=== PATIENT | male | born 1940 | race Caucasian/White ===

== ENCOUNTER → 2016-12-05 | Day surgery (SDC) | payer BC ==
[2016-11-28 14:33] VITALS: Ht 172.7 cm; Wt 77.3 kg
[~2016-12-05] VITALS: Ht 172.7 cm; Wt 77.3 kg
[~2016-12-05] MED LIST: 500ML BSS 0.3ML EPI 1:1000PF IRRIG ONE; ACETAMINOPHEN 325 MG TAB PO PRN; AMVISC PLUS 0.8ML SYRINGE INT OCU ONE; ASPEC81 PO; ATROPINE SULFATE 0.1 MG/ML 5ML SYR IV PRN; BSS FLUSH ONE; COEN75CA PO; CRS/10 PO; ENDOCOAT 0.85ML SYRINGE INT OCU ONE; EpHEDrine SULFATE INJ 50 MG/ML AMP IV PRN; EpINEphrine INJ 1MG/ML AMP 1 MG/ML AMP ONE; GLUC250C PO; HYDR12.55 PO; LACTATED RINGER'S 1000ML 500 ML IV SCH; LIDOCAINE 4% OP SOLN DROP CHARGE ONE; LIDOCAINE 4% OP SOLN DROP CHARGE OPL SCH; LIDOCAINE HCL 1% MPF 2 ML VIAL ONE; LISI20TA3 PO; MIDAZOLAM HCL 1 MG/ML 2ML VIAL ONE; MIX: 4ML BSS 1ML EPI 1:1000 PF TOP ONE; MOXIFLOXACIN OPH SOLN PER DROP CHARGE ONE; MULTTAB58 PO; PHENYLEPHRINE HCL 10% OP SOLN 5 ML BTL OPL ONE; POVIDONE-IODINE OP SOLN 30 ML BTL ONE; PRED1SUS3 OPL; PROPARACAINE 0.5% OP SOLN PER DROP CHARGE OPL SCH; PROPARACAINE HCL 0.5% OP SOLN 15 ML BTL OPL ONE; TOBRAMYCIN/DEXAMETHASONE OPH OINT PER APPLN CHARGE ONE
[2016-12-05] MEDS: PHENYLEPHRINE HCL 2.5% OP SOLN PER DROP CHARGE OPL SCH ×3 (10:29→10:39)
[2016-12-05] MEDS: TROPICAMIDE 1% OP SOLN PER DROP CHARGE OPL SCH ×3 (10:30→10:40)
[2016-12-05] MEDS: CYCLOPENTOLATE HCL 1% OP SOLN PER DROP CHARGE OPL SCH ×3 (10:31→10:41)
[2016-12-05] MEDS: MOXIFLOXACIN OPH SOLN PER DROP CHARGE OPL SCH ×3 (10:32→10:42)
--- NOTE | 2016-12-05 10:45 | History & Physical Bridge - SC ---
H&P Re-Evaluation Bridge Note: I have examined the patient, reviewed the History & Physical and in the interval since the performance of the History & Physical I have noted the following changes of clinical significance: No changes noted
[2016-12-05 12:11] VITALS: TEMP 36.5
--- NOTE | 2016-12-05 12:11 | [facility] Post Operative Brief Note ---
Immediate Operative Summary Operative Date Dec 05, 2016. Pre-Operative Diagnosis cataract left eye Post-Operative Diagnosis same Procedure(s) Performed Left Cataract Phacoemulsification With Intraocular Lens Implant; Multifocal Lens Surgeon dr sybil valencia Osteopathic Medicine Teacher Surgeon(s) none Estimated Blood Loss 0 Findings left cataract Specimens 0 Complication(s) None Disposition
--- NOTE | 2016-12-05 12:14 | [facility] Operative Report ---
Operative Report DATE OF OPERATION: 12/05/16 PREOPERATIVE DIAGNOSIS: Senile nuclear cataract, left eye POSTOPERATIVE DIAGNOSIS: Senile nuclear cataract, left eye PROCEDURE PERFORMED: Femtosecond-assisted phacoemulsification with extended depth of focus intraocular lens implantation, left eye SURGEON: Dr. Jimbo Gibbons ANESTHESIA: Topical with 1% intracameral lidocaine and monitored anesthesia care COMPLICATIONS: None DESCRIPTION OF PROCEDURE: After positively identifying the patient both verbally and by wristband in the preoperative area, the left eye was marked as the operative eye. Using a sterile marker, the 3:00, 6:00 and 9:00 position on the limbus were marked after placing a drop of proparacaine. The patient was first brought to the laser room where the femtosecond laser was used to create the lens fragmentation , capsulotomy, and main incision. The patient was then brought back to the operating room by the anesthesia and nursing staff where they were given a drop of tetracaine and betadine into the operative eye. They were then sterilely prepped and draped in the standard fashion typical for ophthalmic surgery. Steri-strips were placed along the upper eyelids to keep the lashes back, and a lid speculum was placed into the operative eye. At this point, a documented time out was performed with members of the ophthalmology, nursing, and anesthesia staffs all agreeing upon the correct patient, correct location for surgery, correct procedure, and correct type and power of intraocular lens to be implanted. The microscope was then swung into position. Then, a paracentesis wound was made using a sideport blade. Then, in sequence, 1% preservative-free lidocaine followed by Endocoat viscoelastic was injected into the anterior chamber. Next , the main incision was opened with a Hugh spatula, and Utrata forceps were used to remove the capsulotomy. Hydrodissection was then performed with BSS on a flat-tip cannula. Next, the phacoemulsification handpiece was introduced into the eye and used to remove the nucleus in a oupofy-zvd-flidkwg fashion. This was done without complication and then the irrigation-aspiration handpiece was introduced into the eye and used to remove all remaining cortical and epinuclear material. Amvisc was then injected into the anterior chamber as well as into the capsular bag and using the lens injector system, a ZXR00 14.5 D lens, serial number [id number] and expiration date 10/2021 was injected into the capsular bag and rotated into the correct position. Next, the irrigation- aspiration handpiece was used to remove all remaining Amvisc. BSS was used to hydrate the main wound, and then BSS was injected into the paracentesis site to reach physiologic pressure and then the main wound was checked and found to be watertight. The patient was given drops of Vigamox and tobradex ointment into the operative eye, and then the surrounding area was cleaned and dried. A clear plastic shield was placed over the eye and the patient was then sat up and taken from the operating room by the anesthesia staff having tolerated the procedure well and suffering no complications. DISPOSITION: The patient was returned to the recovery room in stable condition. I attest to the content of the Intraoperative Record and any orders documented therein. Any exceptions are noted below.
--- NOTE | 2016-12-05 12:15 | Discharge Instructions-SurgCtr ---
Discharge Instructions Visit Reason for Visit: Cataract Left Eye Discharge Discharge Diagnosis / Problem: left cataract Discharge Goals Goal(s): Decrease discomfort, Improve function Activity Recommendations Activity Limitations: as noted below Anesthesia . Post Anesthesia Instructions: If you have had General Anesthesia or IV Sedation: * Do not drive today. * Resume driving when surgeon permits. * Do not make important decisions or sign legal documents today. * Call surgeon for: 1. Temperature elevations greater than 101 degrees F. 2. Uncontrollable pain. 3. Excessive bleeding. 4. Persistent nausea and vomiting. 5. Medication intolerance (nausea, vomiting or rash). * For nausea and vomiting use only clear liquids such as: tea, soda, bouillon until nausea subsides, then gradually increase diet as tolerated. * If you have any concerns or questions, call your surgeon's office. If physician is unavailable and it is an emergency, call 911 or go to the nearest emergency room. . Instructions / Follow-Up Instructions / Follow-Up ACTIVITY RECOMMENDATIONS: * Light activities. * You may walk outside, read, watch television. * You may notice redness on the white part of the eye and some blurry vision - this is normal. MEDICATIONS: Resume previous medications unless instructed otherwise by your surgeon. Start all eye drops at 2 pm today: * Eye drops (today): Prednisone - one drop in operative eye every 2 hours while awake Ofloxacin - one drop in operative eye every 2 hours while awake Ilevro - one drop in operative eye daily SPECIAL CARE INSTRUCTIONS: * Tape plastic shield over eye to sleep at night. Call your doctor at with any concerns or problems. FOLLOW UP VISIT: Follow-up with Dr Gibbons at [facility] as scheduled. Diet Recommendations Home Diet: no limitations Procedures Procedures Performed: Left Cataract Phacoemulsification With Intraocular Lens Implant; Multifocal Lens Pending Studies Studies pending at discharge: no Medical Emergencies . Who to Call and When: Medical Emergencies: If at any time you feel your situation is an emergency, please call 911 immediately. . Non-Emergent Contact Non-Emergency issues call your: Surgeon . . "Provider Documentation" section prepared by Jimbo Gibbons.
[2016-12-05 12:28] VITALS: BP 141/79; PULSE 60; O2SAT 97
--- NOTE | 2016-12-05 12:28 | Anesthesia Progress Nt - [facility] ---
Anesthesia Post Op Note Date & Time Dec 05, 2016 at 12:28 Vital Signs Pain Intensity: 0 Vital Signs Past 12 Hours Date Time Temp Pulse Resp B/P Pulse Ox O2 Delivery O2 Flow Rate FiO2 12/05/16 12:11 36.5 54 16 125/79 97 Room Air 12/05/16 11:42 59 16 129/79 95 12/05/16 11:30 57 16 106/78 94 12/05/16 10:24 36.4 73 18 148/80 98 Room Air Notes Mental Status: alert / awake / arousable, participated in evaluation Pt Amnestic to Procedure: Yes Nausea / Vomiting: adequately controlled Pain: adequately controlled Airway Patency, RR, SpO2: stable & adequate BP & HR: stable & adequate Hydration State: stable & adequate Anesthetic Complications: no major complications apparent
== END | disposition home or self-care (01) ==
LOC: X.SURG 10:15
PROVIDERS: ATTEND Ophthalmology
DX: H25.12 Age-related nuclear cataract, left eye (principal); I10 Essential (primary) hypertension; Z87.891 Personal history of nicotine dependence; E78.00 Pure hypercholesterolemia, unspecified; K58.9 Irritable bowel syndrome, unspecified

== ENCOUNTER → 2016-12-19 | Day surgery (SDC) | payer BC ==
[2016-12-12 10:34] VITALS: Ht 172.7 cm; Wt 77.3 kg
[~2016-12-19] VITALS: Ht 172.7 cm; Wt 77.3 kg
[~2016-12-19] MED LIST changes: -LIDOCAINE 4% OP SOLN DROP CHARGE OPL SCH; +LIDOCAINE 4% OP SOLN DROP CHARGE OPR SCH; -PHENYLEPHRINE HCL 10% OP SOLN 5 ML BTL OPL ONE; +PHENYLEPHRINE HCL 10% OP SOLN 5 ML BTL OPR ONE; -PRED1SUS3 OPL; -PROPARACAINE 0.5% OP SOLN PER DROP CHARGE OPL SCH; +PROPARACAINE 0.5% OP SOLN PER DROP CHARGE OPR SCH; -PROPARACAINE HCL 0.5% OP SOLN 15 ML BTL OPL ONE; +PROPARACAINE HCL 0.5% OP SOLN 15 ML BTL OPR ONE
[2016-12-19] MEDS: PHENYLEPHRINE HCL 2.5% OP SOLN PER DROP CHARGE OPR SCH ×3 (10:35→10:45)
[2016-12-19] MEDS: TROPICAMIDE 1% OP SOLN PER DROP CHARGE OPR SCH ×3 (10:36→10:46)
[2016-12-19] MEDS: CYCLOPENTOLATE HCL 1% OP SOLN PER DROP CHARGE OPR SCH ×3 (10:37→10:47)
[2016-12-19] MEDS: MOXIFLOXACIN OPH SOLN PER DROP CHARGE OPR SCH ×3 (10:38→10:48)
--- NOTE | 2016-12-19 12:19 | [facility] Post Operative Brief Note ---
Immediate Operative Summary Operative Date Dec 19, 2016. Pre-Operative Diagnosis Right Eye Cataract Post-Operative Diagnosis Same Procedure(s) Performed Right Cataract Phacoemulsification With Intraocular Lens Implant; Symfony Lens Surgeon Dr Gibbons Fan Installer Surgeon(s) None Estimated Blood Loss 0ml Findings right cataract Specimens None Complication(s) None Disposition
[2016-12-19 12:22] VITALS: TEMP 36
--- NOTE | 2016-12-19 12:22 | [facility] Operative Report ---
Operative Report Date of Service Dec 19, 2016. Operative Report DATE OF OPERATION: 12/19/16 PREOPERATIVE DIAGNOSIS: Senile nuclear cataract and astigmatism, right eye POSTOPERATIVE DIAGNOSIS: Senile nuclear cataract and astigmatism, right eye PROCEDURE PERFORMED: Femtosecond assisted phacoemulsification with intraocular lens implantation, right eye SURGEON: Dr. Jimbo Gibbons ANESTHESIA: Topical with 1% intracameral lidocaine and monitored anesthesia care COMPLICATIONS: None DESCRIPTION OF PROCEDURE: After positively identifying the patient both verbally and by wristband in the preoperative area, the right eye was marked as the operative eye. Using a sterile marker, the 3:00, 6:00, and 9:00 position on the limbus were marked after placing a drop of lidocaine. The patient was then brought back to the operating room by the anesthesia and nursing staff where they were given a drop of tetracaine and betadine into the operative eye. They were then sterilely prepped and draped in the standard fashion typical for ophthalmic surgery. Steri-strips were placed along the upper eyelids to keep the lashes back, and a lid speculum was placed into the operative eye. At this point, a documented time out was performed with members of the ophthalmology, nursing, and anesthesia staffs all agreeing upon the correct patient, correct location for surgery, correct procedure, and correct type and power of intraocular lens to be implanted. The microscope was then swung into position. Then, a paracentesis wound was made using a sideport blade. Then, in sequence, 1% preservative-free lidocaine followed by Endocoat viscoelastic was injected into the anterior chamber. Next , the main incision was opened with a Hugh spatula. Utrata forceps were used to remove the capsulotomy. Hydrodissection was then performed with BSS on a flat-tip cannula. Next, the phacoemulsification handpiece was introduced into the eye and used to remove the nucleus in a durjlm-vnx-vzxwupa fashion. This was done without complication and then the irrigation-aspiration handpiece was introduced into the eye and used to remove all remaining cortical and epinuclear material. Amvisc was then injected into the anterior chamber as well as into the capsular bag and using the lens injector system, a ZXR00 14.5 D lens, serial number [id number], and expiration date 10/2021 was injected into the capsular bag and rotated into the correct position to correctly line up with the toric marking. Next, the irrigation-aspiration handpiece was used to remove all remaining Amvisc. BSS was used to hydrate the main wound, and then BSS was injected into the paracentesis site to reach physiologic pressure and then the main wound was checked and found to be watertight. The patient was given drops of Vigamox and tobradex ointment into the operative eye, and then the surrounding area was cleaned and dried. A clear plastic shield was placed over the eye and the patient was then sat up and taken from the operating room by the anesthesia staff having tolerated the procedure well and suffering no complications. DISPOSITION: The patient was returned to the recovery room in stable condition. I attest to the content of the Intraoperative Record and any orders documented therein. Any exceptions are noted below.
--- NOTE | 2016-12-19 12:23 | Discharge Instructions-SurgCtr ---
Discharge Instructions Visit Reason for Visit: Cataract Right Eye Discharge Discharge Diagnosis / Problem: right cataract Discharge Goals Goal(s): Decrease discomfort, Improve function Activity Recommendations Activity Limitations: as noted below Anesthesia . Post Anesthesia Instructions: If you have had General Anesthesia or IV Sedation: * Do not drive today. * Resume driving when surgeon permits. * Do not make important decisions or sign legal documents today. * Call surgeon for: 1. Temperature elevations greater than 101 degrees F. 2. Uncontrollable pain. 3. Excessive bleeding. 4. Persistent nausea and vomiting. 5. Medication intolerance (nausea, vomiting or rash). * For nausea and vomiting use only clear liquids such as: tea, soda, bouillon until nausea subsides, then gradually increase diet as tolerated. * If you have any concerns or questions, call your surgeon's office. If physician is unavailable and it is an emergency, call 911 or go to the nearest emergency room. . Instructions / Follow-Up Instructions / Follow-Up ACTIVITY RECOMMENDATIONS: * Light activities. * You may walk outside, read, watch television. * You may notice redness on the white part of the eye and some blurry vision - this is normal. MEDICATIONS: Resume previous medications unless instructed otherwise by your surgeon. Start all eye drops at 2:30 pm today: * Eye drops (today): Prednisone - one drop in operative eye every 2 hours while awake Ofloxacin - one drop in operative eye every 2 hours while awake Ilevro - one drop in operative eye daily SPECIAL CARE INSTRUCTIONS: * Tape plastic shield over eye to sleep at night. Call your doctor at with any concerns or problems. FOLLOW UP VISIT: Follow-up with Dr Gibbons at [facility] as scheduled. Diet Recommendations Home Diet: no limitations Procedures Procedures Performed: Right Cataract Phacoemulsification With Intraocular Lens Implant; Symfony Lens Pending Studies Studies pending at discharge: no Medical Emergencies . Who to Call and When: Medical Emergencies: If at any time you feel your situation is an emergency, please call 911 immediately. . Non-Emergent Contact Non-Emergency issues call your: Surgeon . . "Provider Documentation" section prepared by Jimbo Gibbons.
[2016-12-19 12:45] VITALS: BP 140/92; PULSE 64; O2SAT 96
--- NOTE | 2016-12-19 12:45 | Anesthesia Progress Nt - [facility] ---
Anesthesia Post Op Note Date & Time Dec 19, 2016 at 12:45 Vital Signs Pain Intensity: 0 Vital Signs Past 12 Hours Date Time Temp Pulse Resp B/P Pulse Ox O2 Delivery O2 Flow Rate FiO2 12/19/16 12:22 36.0 56 16 127/82 99 Room Air 12/19/16 11:50 58 16 142/87 92 12/19/16 11:40 58 16 134/75 94 12/19/16 10:27 36.4 67 18 171/82 99 Room Air Notes Mental Status: alert / awake / arousable, participated in evaluation Pt Amnestic to Procedure: Yes Nausea / Vomiting: adequately controlled Pain: adequately controlled Airway Patency, RR, SpO2: stable & adequate BP & HR: stable & adequate Hydration State: stable & adequate Anesthetic Complications: no major complications apparent
== END | disposition home or self-care (01) ==
LOC: X.SURG 10:15
PROVIDERS: ATTEND Ophthalmology
DX: H25.10 Age-related nuclear cataract, unspecified eye (principal); H52.201 Unspecified astigmatism, right eye; I10 Essential (primary) hypertension; E78.5 Hyperlipidemia, unspecified; M19.90 Unspecified osteoarthritis, unspecified site; K58.9 Irritable bowel syndrome, unspecified

== ENCOUNTER → 2017-03-01 | Outpatient (CLI) | payer BC ==
[~2017-03-01] MED LIST changes: -500ML BSS 0.3ML EPI 1:1000PF IRRIG ONE; -ACETAMINOPHEN 325 MG TAB PO PRN; -AMVISC PLUS 0.8ML SYRINGE INT OCU ONE; -ATROPINE SULFATE 0.1 MG/ML 5ML SYR IV PRN; -BSS FLUSH ONE; -ENDOCOAT 0.85ML SYRINGE INT OCU ONE; -EpHEDrine SULFATE INJ 50 MG/ML AMP IV PRN; -EpINEphrine INJ 1MG/ML AMP 1 MG/ML AMP ONE; -LACTATED RINGER'S 1000ML 500 ML IV SCH; -LIDOCAINE 4% OP SOLN DROP CHARGE ONE; -LIDOCAINE 4% OP SOLN DROP CHARGE OPR SCH; -LIDOCAINE HCL 1% MPF 2 ML VIAL ONE; -MIDAZOLAM HCL 1 MG/ML 2ML VIAL ONE; -MIX: 4ML BSS 1ML EPI 1:1000 PF TOP ONE; -MOXIFLOXACIN OPH SOLN PER DROP CHARGE ONE; -PHENYLEPHRINE HCL 10% OP SOLN 5 ML BTL OPR ONE; -POVIDONE-IODINE OP SOLN 30 ML BTL ONE; -PROPARACAINE 0.5% OP SOLN PER DROP CHARGE OPR SCH; -PROPARACAINE HCL 0.5% OP SOLN 15 ML BTL OPR ONE; -TOBRAMYCIN/DEXAMETHASONE OPH OINT PER APPLN CHARGE ONE
--- NOTE | 2017-03-01 15:05 | DIAGNOSTIC IMAGING REPORT ---
CT HEAD WITHOUT CONTRAST (CT) CLINICAL HISTORY: HEAD TRAUMA 4]. HEAD PAIN COMPARISON STUDY: 10/11/2013 TECHNIQUE: Axial CT of the brain is performed from the vertex to the skull base. IV contrast was not administered for this examination. CT DOSE: 580.48 mGy.cm FINDINGS: No intra or extra-axial mass lesions are visualized. There is no CT evidence of acute cortical infarction. There is no evidence of midline shift. There is no acute hemorrhage. No calvarial fractures are visualized. There are patchy white matter hypodensities likely on a small vessel basis. There is no evidence of pathologic ventricular dilatation. There is no evidence of acute sinusitis IMPRESSION: No acute intracranial findings Electronically signed by: Nima Dodd M.D. 03/01/2017 3:04 PM Dictated Date/Time: 03/01/2017 3:03 PM
== END | disposition home or self-care (01) ==
LOC: C.CTS 14:52
PROVIDERS: ATTEND Student in an Organized Health Care Education/Training Program
DX: S09.90XA Unspecified injury of head, initial encounter (principal); X58.XXXA Exposure to other specified factors, initial encounter

== ENCOUNTER 2019-11-28 13:29 | Observation (INO) ==
[2019-11-28] MEDS ORDERED: SODIUM CHLORIDE 0.9% 500 ML IV ONE (13:50)
[2019-11-28 14:30] LABS: Basophils # (auto) 0.01 K/uL (0-0.2); Basophils % (auto) 0.2 %; Eosinophils # (auto) 0.06 K/uL (0-0.5); Eosinophils % (auto) 1.4 %; Hematocrit (blood only) 38.1 % (42-52); Lymphocytes # (auto) 0.79 K/uL (1.2-3.4); Mean Corpuscular Hemoglobin 32.3 pg (25-34); Mean Corpuscular Hgb Conc 34.1 g/dL (32-36); Mean Corpuscular Volume 94.8 fL (80-100); Mean Platelet Volume 9.5 fL (7.4-10.4); Monocytes # (auto) 0.41 K/uL (0.11-0.59); Monocytes % (auto) 9.9 %; Neutrophils # (auto) 2.89 K/uL (1.4-6.5); Neutrophils % (auto) 69.5 %; Platelet Count 226 K/uL (130-400); RDW Coefficient of Variation 11.9 % (11.5-14.5); RDW Standard Deviation 41.2 fL (36.4-46.3); Red Blood Count 4.02 M/uL (4.7-6.1); White Blood Count 4.16 K/uL (4.8-10.8)
--- NOTE | 2019-11-28 14:39 | XRay Report ---
XR chest 1V portable CLINICAL HISTORY: 79 years-old Male presenting with Chest Pain. TECHNIQUE: Portable upright AP view of the chest was obtained. COMPARISON: 10/11/2013. FINDINGS: Cardiac silhouette borderline enlarged. No focal opacity. No large effusion or pneumothorax. Degenera tive changes of the thoracic spine. Mild degenerative changes of the glenohumeral joints. Upper abdom en normal. IMPRESSION: 1. Borderline cardiomegaly. No other convincing evidence of acute cardiopulmonary disease. ACT 112: Negative or not required by law. Electronically signed by: Dain Titus M.D. 11/28/2019 2:37 PM
[2019-11-28 14:41] LABS: INR 1.1 (0.9-1.1); Partial Thromboplastin Ratio 0.9; Partial Thromboplastin Time 25.6 Seconds (21.0-31.0); Prothrombin Time 11.4 Seconds (9.0-12.0)
[2019-11-28 14:47] LABS: Alanine Aminotransferase 29 U/L (12-78); Albumin Level 3.5 gm/dl (3.4-5.0); Aspartate Aminotransferase 24 U/L (15-37); Blood Urea Nitrogen 25 mg/dl (7-18); Calcium 8.6 mg/dl (8.5-10.1); Carbon Dioxide 31 mmol/L (21-32); Chloride 103 mmol/L (98-107); Creatinine Clr Calc Pharmacy 50.6 ml/min; Est GFR (African American) 67.4; Est GFR (Non-African American) 58.2; Glucose 110 mg/dl (70-99); Lipase 130 U/L (73-393); Sodium 138 mmol/L (136-145)
[2019-11-28 14:58] LABS: Albumin Globulin Ratio 1.1 (0.9-2); Alkaline Phosphatase 57 U/L (45-117); Bilirubin,Total 0.5 mg/dl (0.2-1); Globulin 3.1 gm/dl (2.5-4.0); Phosphorus 2.6 mg/dl (2.5-4.9); Total Protein 6.6 gm/dl (6.4-8.2); Troponin I < 0.015 ng/ml (0-0.045)
--- NOTE | 2019-11-28 16:01 | Electrocardiogram Report ---
Test Reason : Blood Pressure : / mmHG Vent. Rate : 062 BPM Atrial Rate : 062 BPM P-R Int : 218 ms QRS Dur : 086 ms QT Int : 424 ms P-R-T Axes : 058 009 002 degrees QTc Int : 430 ms Poor data quality, interpretation may be adversely affected Sinus rhythm with 1st degree A-V block Borderline ECG When compared with ECG of 09-DEC-2013 23:43, NH interval has increased Confirmed by Geovanni Narvaez ([id number]) on 11/28/2019 4:00:44 PM Referred By: REFERRED SELF Confirmed By:Geovanni Narvaez
--- NOTE | 2019-11-28 16:15 | History & Physical Report ---
Date of Service November 28, 2019 Assessment & Plan (1) Hypertensive urgency: Left sided numbness and chest pain associated with hypertensive urgency. No end organ damage noted at present on imaging or labs. 3 hours of symptoms before relief from nitroglycerin. When seen at 4:30pm he was symptom free. I suspect his hypertension caused his symptoms rather than the other way round since treatment of the hypertension relieved his symptoms. Noted problem list of hypertensive urgency and uncontrolled hypertension in the past - patient reports this was prior to being on any anti-hypertensives and is a lot more stable now. Monitor on telemetry overnight - consider 30 day teletypesetter monitor outpatient unless a good explanation of why he became hypertensive (2) Left sided numbness: Discussed with Dr Talley and I do not feel this is a TIA/Stroke admission given improvement with dropping his blood pressure with nitroglycerin. However feel MRI brain would be useful to rule out a structural problem that caused his one sided symptoms. Will defer to day team to consult neuro if felt this is warranted. (3) Chest pain, rule out acute myocardial infarction: Serial troponins. Suspect hypertensive urgency as above. No significant ischemic symptoms at baseline therefore I do not feel he needs to stay for a stress test if morning troponin is normal. Lipids + HbA1C in AM. 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 No recent diarrhea. (5) DVT prophylaxis: Short stay, mobile, no additional risk factors other than age therefore will defer chemical prophylaxis unless he is staying. History of Present Illness Chief Complaint: Left sided numbness and chest pain Primary Care Provider: VERITO OCHOA Andrzej Trammell is a 79 year old male who presented to the ER via EMS due to an episode of lightheadedness, left facial/arm and leg numbness and left chest pain that started around 11:45am today. He was at a surprise birthday democr[employer] when his symptoms started with lightheadedness and left facial numbness and slowly progressed over minutes to other areas. Initially plan was to drive into hospital but they had to harness puller and call EMS since his symptoms became worse with associated nausea. EMS noted his blood pressure to be elevated in 200s and he was c/o chest pain therefore he received x2 nitroglycerin sprays with good effect. He denies any headache, loss of consciousness or vomiting. When seen the patient was no longer having any symptoms. 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 In the ER he was worked up for chest pain but not the left sided numbness from his face/arm/leg. He did not have any associated weakness, change in speech/hearing/taste. Advised to get a CT head, CTA head/neck as workup for hypertensive hemorrhage. These were subsequently unremarkable other than < 50% right ICA stenosis. Allergies Allergy/AdvReac Type Severity Reaction Status Date / Time Sulfa (Sulfonamide AdvReac Unknown UPSET Unverified 11/28/19 14:31 Antibiotics) STOMACH Home Medications Home Medications Medication Instructions Recorded Confirmed Type aspirin 325 mg PO DAILY 11/28/19 11/28/19 History hydrochlorothiazide 12.5 mg PO DAILY 11/28/19 11/28/19 History lisinopril 20 mg PO BID 11/28/19 11/28/19 History rosuvastatin 5 mg PO HS 11/28/19 11/28/19 History Past Med/Surg History Medical History Fructose malabsorption Gallbladder problem (Chronic) Headache (Acute) Hypertension (Acute) Hypertension (Acute) Hypertensive urgency (Acute) Social History Preferred Language: [place] Communication Ability: Effective Dependency Counselor Required: No Beliefs That Will Affect Care: None Current Living Situation: Spouse Other Information That Helps Us Care for You: No Feels Safe at Home: Yes Safety Concerns: Feels Safe At This Time Smoking Status: Former smoker Hx Alcohol Use: Yes Alcohol type: wine Hx Substance Use: No Review of Systems Review of Systems: All systems reviewed & are unremarkable except as noted in HPI & below Physical Exam Constitutional: WD/WN, vitals as above Eyes: PERRL, conjunctivae normal, anicteric sclerae EOM intact bilaterally (no diplopia); no nystagmus ENMT: external ear and nose normal, oropharynx normal Neck: trachea midline, no thyromegaly Respiratory: normal respiratory effort, lungs clear to auscultation Cardiovascular: RRR, no murmur, no edema Gastrointestinal (Abdomen): normal bowel sounds, soft, nontender, no he patosplenomegaly Musculoskeletal: no cyanosis or clubbing, extremities motor strength 5/5 Skin: no rashes, warm and dry Neurologic: PERRL, EOMI, accommodation nl, no face palsy, no dysarthria CN's II-XI intact bilaterally, moves all extremities and awake; no focal motor deficits and not confused Speech / Cognition: normal speech Motor/Sensory: no tremor, no pronator drift and no sensory deficit Psychiatric: A+Ox3, euthymic affect Results & Data Vital Signs (Past 12 Hours) Vital Signs Temp Pulse Resp BP Pulse Ox 11/28/19 15:31 60 16 96 11/28/19 15:30 65 23 133/78 94 11/28/19 15:01 65 16 96 11/28/19 15:00 59 L 16 135/83 94 11/28/19 14:31 60 16 97 11/28/19 14:30 59 L 14 149/87 H 95 11/28/19 14:01 64 22 11/28/19 14:00 60 13 144/87 H 11/28/19 13:40 64 14 93 11/28/19 13:39 36.6 C 63 14 162/92 H 97 11/28/19 13:37 62 12 162/92 H 96 Diagnostic Findings XR chest 1V portable IMPRESSION: 1. Borderline cardiomegaly. No other convincing evidence of acute cardiopulmonary disease. CT head/brain wo con IMPRESSION: 1. No acute intracranial abnormality. CT angio head w con IMPRESSION: 1. No evidence of aneurysm, focal vessel occlusion, or significant stenosis of the intracranial arteries. CT angio neck with con IMPRESSION: 1. Less than 50% stenosis of the origin of the right ICA secondary to atherosclerotic plaque. 2. No other evidence of dissection, focal vessel occlusion, or significant stenosis of the cervical arteries. Medications Administered NSS 500 ml bolus ECG Indication: chest pain Rate (beats per minute): 62 Rhythm: normal sinus Findings: + 1st degree AV block; no acute ischemic change Comparison ECG Date: from (12/09/2013) Change: the following changes noted (increase in NH interval) Code Status & VTE Plan Code Status Full VTE Prophylaxis Plan VTE Prophylaxis will be ordered: Yes PG Care Time/CCT Total # of Minutes Spent Total Time Spent with Patient: Total time spent is greater than 50% in coordination of care (as documented) at patient's floor/unit and/or counseling patient: Coding Level of Care Code 14505 OBS Care - Level 3 Diagnoses Hypertensive urgency I16.0 Left sided numbness R20.0 Chest pain, rule out acute myocardial infarction R07.9 Fructose malabsorption E74.8 DVT prophylaxis Z29.9
[2019-11-28] MEDS ORDERED: OPTIRAY 320 125ml IV PRN (17:24)
--- NOTE | 2019-11-28 17:40 | CT Scan Report ---
CT head/brain wo con CLINICAL HISTORY: 79 years-old Male presenting with dizziness, left sided numbness. TECHNIQUE: Multidetector CT imaging of the head was performed without the use of intravenous contrast . IV contrast: None. One or more dose lowering techniques were used consistent with the principles of ALARA (as low as reasonably achievable), including automatic exposure control, mA or kV adjustment t o individual patient size, and/or use of iterative reconstruction. COMPARISON: 03/01/2017. CT DOSE (mGy.cm): The estimated cumulative dose is 1118.95. FINDINGS: Life Manager topogram: Unremarkable. Ventricles and sulci normal in size. No hemorrhage. Brain parenchyma normal in appearance with preser augusto colon-white differentiation. No acute territorial infarct. No mass effect or midline shift. No ext ra-axial fluid collection. Paranasal sinuses and mastoid air cells clear. Calvarium intact. IMPRESSION: 1. No acute intracranial abnormality. ACT 112: Negative or not required by law. Electronically signed by: Dain Titus M.D. 11/28/2019 5:39 PM
--- NOTE | 2019-11-28 17:44 | CT Scan Report ---
CT angio neck with con CLINICAL HISTORY: 79 years-old Male presenting with dizziness, left sided numbness. TECHNIQUE: Multidetector CT angiography of the neck was performed after the administration of intrave nous contrast. 3-D volumetric and/or maximum intensity projection (MIP) images were subsequently rina nstructed for review. IV contrast: 120 mL of Optiray 320. One or more dose lowering techniques were u sed consistent with the principles of ALARA (as low as reasonably achievable), including automatic ex posure control, mA or kV adjustment to individual patient size, and/or use of iterative reconstructio n. Stenosis measurements were based on NASCET-like criteria (distal lumen diameter as the denominator for stenosis measurement). COMPARISON: None. CT DOSE (mGy.cm): The estimated cumulative dose is 1118.95. FINDINGS: Finishing Room Supervisor topogram: Unremarkable. Aortic arch: Atherosclerosis of the three-vessel aortic arch with patent origins of the branch vessel s. Innominate artery: Patent. Right subclavian artery: Patent. Right common carotid artery: Patent. Right internal and external carotid arteries: Right carotid bifurcation with calcified and noncalcifi ed plaque resulting in less than 50% stenosis of the origin of the internal carotid artery. Tortuosit y of the ICA noted in the mid to distal segment. ECA widely patent. Left common carotid artery: Patent. Left internal and external carotid arteries: Left carotid bifurcation patent. Left internal and exter nal carotid arteries widely patent. Left subclavian artery: Patent. Vertebral arteries: Codominant vertebral arteries. Origins and courses of the bilateral vertebral art eries patent. Other: Limited intracranial evaluation within normal limits. Soft tissues of the neck normal allowing for the phase of contrast. Degenerative changes of the cervical spine. Lung apices clear. IMPRESSION: 1. Less than 50% stenosis of the origin of the right ICA secondary to atherosclerotic plaque. 2. No other evidence of dissection, focal vessel occlusion, or significant stenosis of the cervical arteries. ACT 112: Negative or not required by law. Electronically signed by: Dain Titus M.D. 11/28/2019 5:42 PM
--- NOTE | 2019-11-28 17:47 | CT Scan Report ---
CT angio head w con CLINICAL HISTORY: 79 years-old Male presenting with dizziness, left sided numbness. TECHNIQUE: Multidetector CT angiography of the head was performed after the administration of intrave nous contrast. 3-D volumetric and/or maximum intensity projection (MIP) images were subsequently rina nstructed for review. IV contrast: 120 mL of Optiray 320. One or more dose lowering techniques were u sed consistent with the principles of ALARA (as low as reasonably achievable), including automatic ex posure control, mA or kV adjustment to individual patient size, and/or use of iterative reconstructio n. COMPARISON: None. CT DOSE (mGy.cm): The estimated cumulative dose is 1118.95 mGy.cm. FINDINGS: Drug Department Worker topogram: Unremarkable. Anterior circulation: Intracranial portions of the internal carotid arteries patent to the level of t he termini. Anterior cerebral arteries patent. Middle cerebral arteries patent. Anterior communicatin g artery patent. Posterior circulation: Codominant vertebral arteries. Intradural portions of the vertebral arteries p atent. Posterior inferior cerebellar arteries patent. Basilar artery patent. Anterior inferior cerebe llar arteries poorly visualized. Superior cerebellar arteries patent. Posterior cerebral arteries pat ent. Posterior communicating arteries hypoplastic or aplastic. Dural venous sinuses: Patent. Other: Allowing for the phase of contrast, brain parenchyma within normal limits. Calvarium intact. IMPRESSION: 1. No evidence of aneurysm, focal vessel occlusion, or significant stenosis of the intracranial luciana nadia. ACT 112: Negative or not required by law. Electronically signed by: Dain Titus M.D. 11/28/2019 5:46 PM
--- NOTE | 2019-11-28 17:56 | Emergency Department Note ---
Entered by Chapis Rasmussen acting as a scribe for History of Present Illness General Chief complaint: Chest Pain Time Seen by Provider: 11/28/19 13:47 History of Present Illness Provider complaint: chest pain Onset (ago): hour(s) 2 Location: eyes Pain Consistency: + other (episode) Maximum Pain Intensity: 3 Quality: + other (tightness) Relieved By: not by other (drinking water) Associated symptoms: + denies other symptoms (eating or drinking anything out of the ordinary today) and + other (nausea, lightheaded, left sided weakness/numbness, systolic blood pressure in 200s) Treatments prior to arrival: other (2 sprays of Nitroglycerin and put on oxygen ) The patient is a 79 year old male who presents to the ED with complaints of an episode of chest pain that started 2 hours ago. The patient states that he was at a surprise green party today and he started feeling nauseas, lightheaded and chest tightness. The patient states that drank some water after this but it did not relieve him of these symptoms. The patient states that when he left the green party and got into the car, he started getting left sided numbness so they called an ambulance. The patient states that his systolic blood pressure was in the 200s when EMS first checked. The patient notes that he was given 2 sprays of Nitroglycerin and put on oxygen en route. The patient states that his nausea, numbness and lightheadedness has mostly resolved. The patient denies eating or drinking anything out of the ordinary today. Home Medications Home Medications Medication Instructions Recorded Confirmed Type aspirin 325 mg PO DAILY 11/28/19 11/28/19 History hydrochlorothiazide 12.5 mg PO DAILY 11/28/19 11/28/19 History lisinopril 20 mg PO BID 11/28/19 11/28/19 History rosuvastatin 5 mg PO HS 11/28/19 11/28/19 History Allergies Allergy/AdvReac Type Severity Reaction Status Date / Time Sulfa (Sulfonamide AdvReac Unknown UPSET Unverified 11/28/19 14:31 Antibiotics) STOMACH Past Med/Surg History Medical History Fructose malabsorption Gallbladder problem (Chronic) Headache (Acute) Hypertension (Acute) Hypertension (Acute) Hypertensive urgency (Acute) Social History Preferred Language: Gabonese Communication Ability: Effective Auto Body Technician Required: No Beliefs That Will Affect Care: None Current Living Situation: Spouse Other Information That Helps Us Care for You: No Feels Safe at Home: Yes Safety Concerns: Feels Safe At This Time Smoking Status: Former smoker Hx Alcohol Use: Yes Alcohol type: wine Hx Substance Use: No Review of Systems See HPI for pertinent positives & negatives. and A total of 10 systems reviewed and were otherwise negative Physical Exam Vital Signs Vital Signs - 24 hr 11/28/19 13:37 11/28/19 13:39 11/28/19 13:40 Temperature 36.6 C Temperature Source Oral Pulse Rate 62 63 64 Pulse Rate from SpO2 Sensor 63 64 Respiratory Rate 12 14 14 Respiratory Effort / Characteristics Non-Labored Spontaneous Respiratory Depth Normal Respiratory Pattern Regular Blood Pressure 162/92 H 162/92 H Blood Pressure Mean 119 115 Pulse Oximetry 96 97 93 Oxygen Delivery Method Room Air Sepsis Recent Fever Within 48 Hours No Sepsis New/Unexplained Change in Mental Status No Sepsis Action Taken by Nursing No Action Required 11/28/19 14:00 11/28/19 14:01 11/28/19 14:30 Temperature Temperature Source Pulse Rate 60 64 59 L Pulse Rate from SpO2 Sensor 60 Respiratory Rate 13 22 14 Respiratory Effort / Characteristics Respiratory Depth Respiratory Pattern Blood Pressure 144/87 H 149/87 H Blood Pressure Mean 111 124 Pulse Oximetry 95 Oxygen Delivery Method Sepsis Recent Fever Within 48 Hours Sepsis New/Unexplained Change in Mental Status Sepsis Action Taken by Nursing 11/28/19 14:31 11/28/19 15:00 11/28/19 15:01 Temperature Temperature Source Pulse Rate 60 59 L 65 Pulse Rate from SpO2 Sensor 59 L 59 L 64 Respiratory Rate 16 16 16 Respiratory Effort / Characteristics Respiratory Depth Respiratory Pattern Blood Pressure 135/83 Blood Pressure Mean 105 Pulse Oximetry 97 94 96 Oxygen Delivery Method Sepsis Recent Fever Within 48 Hours Sepsis New/Unexplained Change in Mental Status Sepsis Action Taken by Nursing 11/28/19 15:30 11/28/19 15:31 11/28/19 16:00 Temperature Temperature Source Pulse Rate 65 60 66 Pulse Rate from SpO2 Sensor 64 61 66 Respiratory Rate 23 16 18 Respiratory Effort / Characteristics Respiratory Depth Respiratory Pattern Blood Pressure 133/78 154/78 H Blood Pressure Mean 102 114 Pulse Oximetry 94 96 96 Oxygen Delivery Method Sepsis Recent Fever Within 48 Hours Sepsis New/Unexplained Change in Mental Status Sepsis Action Taken by Nursing 11/28/19 16:01 11/28/19 16:30 11/28/19 16:31 Temperature Temperature Source Pulse Rate 66 75 71 Pulse Rate from SpO2 Sensor 67 70 Respiratory Rate 19 19 17 Respiratory Effort / Characteristics Respiratory Depth Respiratory Pattern Blood Pressure 147/95 H Blood Pressure Mean 121 Pulse Oximetry 96 98 Oxygen Delivery Method Sepsis Recent Fever Within 48 Hours Sepsis New/Unexplained Change in Mental Status Sepsis Action Taken by Nursing GENERAL: Awake, alert, well-appearing, in no distress HENT: Normocephalic, atraumatic. Oropharynx with dry mucous membranes and otherwise unremarkable. EYES: Normal conjunctiva. Sclera non-icteric. EOMI. No nystamgus. PEARRL. NECK: Supple. No nuchal rigidity. FROM. No JVD. RESPIRATORY: Clear to auscultation bilaterally. CARDIAC: Regular rate, normal rhythm. Extremities warm and well perfused. Pulses equal. ABDOMEN: Soft, non-distended. No tenderness to palpation. No rebound or guarding. No masses. RECTAL: Deferred. MUSCULOSKELETAL: Chest examination reveals no tenderness. The back is symmetrical on inspection without obvious abnormality. There is no CVA tenderness to palpation. No joint edema. LOWER EXTREMITIES: Calves are equal size bilaterally and non-tender. No edema. No discoloration. NEURO: Normal sensorium. No sensory or motor deficits noted. 5/5 strength and SILT x4 extremities. Cerebellar function intact, including finger to nose, alternating palms, heel to mullen. SKIN: No rash or jaundice noted. Course Course 1349: Past medical records reviewed. The patient was evaluated in room C03. A complete history and physical exam was performed. 1552: I reevaluated the patient and he is resting comfortably. I updated him on the test results and plan for admission. He verbally agrees and understands. 1601: I discussed the patient's case with Dr. Shaina MARTINEZ, Hospitalist. He will evaluate the patient for further management. Consultations Consultation #1: I discussed the patient's case with Dr. Shaina MARTINEZ, Hospitalist. He will evaluate the patient for further management. Time: 16:01 Administered Medications Lisinopril (Zestril) 20 mg PO BID JOSE Stop: 12/28/19 20:59 Last Admin: 11/28/19 20:34 Dose: 20 mg Documented by: [id number] Rosuvastatin Calcium (Crestor) 5 mg PO HS JOSE Stop: 12/28/19 20:59 Last Admin: 11/28/19 20:34 Dose: Not Given Documented by: [id number] Discontinued Medications Sodium Chloride (Nss) 500 mls @ 999 mls/hr IV .Q31M ONE Stop: 11/28/19 14:20 Last Infusion: 11/28/19 14:31 Dose: 0 mls/hr Documented by: [id number] Admin: 11/28/19 13:57 Dose: 999 mls/hr Documented by: [id number] Ioversol (Optiray 320 125ml) 120 ml IV ONCE PRN PRN Reason: Interaction Checking Stop: 12/02/19 17:23 Last Admin: 11/28/19 17:24 Dose: 120 ml Documented by: [id number] Medical Decision Making Differential Diagnosis Differential diagnosis: Etiologies such as shingles, musculoskeletal pain, pericarditis, myocarditis, cardiac ischemia, pericardial tamponade, pneumonia, pneumothorax, pleural effusion, hemothorax, pleurisy, aortic pathology, pulmonary embolism, intra- abdominal process, as well as others were considered. Medical Records Attestation: I reviewed the patient's medical records. Home Medications Current Medication List: was personally reviewed by me Laboratory Data Attestation: I reviewed the patient's lab results. Result diagrams: 11/28/19 14:16 11/28/19 14:16 Lab Results 11/28/19 11/28/19 11/28/19 Range/Units 14:16 14:16 14:16 WBC 4.16 L (4.8-10.8) K/uL RBC 4.02 L (4.7-6.1) M/uL Hgb 13.0 L (14.0-18.0) g/dL Hct 38.1 L (42-52) % MCV 94.8 (80-100) fL MCH 32.3 (25-34) pg MCHC 34.1 (32-36) g/dL RDW Std Deviation 41.2 (36.4-46.3) fL RDW Coeff of [place] 11.9 (11.5-14.5) % Plt Count 226 (130-400) K/uL MPV 9.5 (7.4-10.4) fL Immature Gran % (Auto) 0.0 % Neut % (Auto) 69.5 % Lymph % (Auto) 19.0 % [place] % (Auto) 9.9 % Eos % (Auto) 1.4 % Baso % (Auto) 0.2 % Immature Gran # (Auto) 0.00 (0.00-0.02) K/uL Neut # (Auto) 2.89 (1.4-6.5) K/uL Lymph # (Auto) 0.79 L (1.2-3.4) K/uL [place] # (Auto) 0.41 (0.11-0.59) K/uL Eos # (Auto) 0.06 (0-0.5) K/uL Baso # (Auto) 0.01 (0-0.2) K/uL PT 11.4 (9.0-12.0) Seconds INR 1.1 (0.9-1.1) APTT 25.6 (21.0-31.0) Seconds PTT Ratio 0.9 Sodium 138 (136-145) mmol/L Potassium 4.0 (3.5-5.1) mmol/L Chloride 103 (98-107) mmol/L Carbon Dioxide 31 (21-32) mmol/L Anion Gap 3.0 (3-11) BUN 25 H (7-18) mg/dl Creatinine 1.19 (0.6-1.4) mg/dl Est Cr Clr Drug Dosing 50.6 ml/min Est GFR ( Amer) 67.4 Est GFR (Non-Af Amer) 58.2 BUN/Creatinine Ratio 21.0 H (10-20) Glucose 110 H (70-99) mg/dl Calcium 8.6 (8.5-10.1) mg/dl Phosphorus 2.6 (2.5-4.9) mg/dl Magnesium 2.0 (1.8-2.4) mg/dl Total Bilirubin 0.5 (0.2-1) mg/dl AST 24 (15-37) U/L ALT 29 (12-78) U/L Alkaline Phosphatase 57 (45-117) U/L Troponin I < 0.015 (0-0.045) ng/ml Total Protein 6.6 (6.4-8.2) gm/dl Albumin 3.5 (3.4-5.0) gm/dl Globulin 3.1 (2.5-4.0) gm/dl Albumin/Globulin Ratio 1.1 (0.9-2) Lipase 130 (73-393) U/L TSH 2.400 (0.300-4.500) uIu/ml Imaging Data Radiologist's Impression: Radiology results as stated below per my review and the radiologist's interpretation: XR chest 1V portable CLINICAL HISTORY: 79 years-old Male presenting with Chest Pain. TECHNIQUE: Portable upright AP view of the chest was obtained. COMPARISON: 10/11/2013. FINDINGS: Cardiac silhouette borderline enlarged. No focal opacity. No large effusion or pneumothorax. Degenerative changes of the thoracic spine. Mild degenerative changes of the glenohumeral joints. Upper abdomen normal. IMPRESSION: 1. Borderline cardiomegaly. No other convincing evidence of acute cardiopulmonary disease. ACT 112: Negative or not required by law. Electronically signed by: Dain Titus M.D. 11/28/2019 2:[address] head/brain wo con CLINICAL HISTORY: 79 years-old Male presenting with dizziness, left sided numbness. TECHNIQUE: Multidetector CT imaging of the head was performed without the use of intravenous contrast. IV contrast: None. One or more dose lowering techniques were used consistent with the principles of ALARA (as low as reasonably achievable), including automatic exposure control, mA or kV adjustment to individual patient size, and/or use of iterative reconstruction. COMPARISON: 03/01/2017. CT DOSE (mGy.cm): The estimated cumulative dose is 1118.95. 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 Ventricles and sulci normal in size. No hemorrhage. Brain parenchyma normal in appearance with preserved colon-white differentiation. No acute territorial infarct. No mass effect or midline shift. No extra-axial fluid collection. Paranasal sinuses and mastoid air cells clear. Calvarium intact. IMPRESSION: 1. No acute intracranial abnormality. ACT 112: Negative or not required by law. Electronically signed by: Dain Titus M.D. 11/28/2019 5:[address] angio head w con CLINICAL HISTORY: 79 years-old Male presenting with dizziness, left sided numbness. TECHNIQUE: Multidetector CT angiography of the head was performed after the administration of intravenous contrast. 3-D volumetric and/or maximum intensity projection (MIP) images were subsequently reconstructed for review. IV contrast: 120 mL of Optiray 320. One or more dose lowering techniques were used consistent with the principles of ALARA (as low as reasonably achievable), including aut omatic exposure control, mA or kV adjustment to individual patient size, and/or use of iterative reconstruction. COMPARISON: None. CT DOSE (mGy.cm): The estimated cumulative dose is 1118.95 mGy.cm. 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 Anterior circulation: Intracranial portions of the internal carotid arteries patent to the level of the termini. Anterior cerebral arteries patent. Middle ce rebral arteries patent. Anterior communicating artery patent. Posterior circulation: Codominant vertebral arteries. Intradural portions of the vertebral arteries patent. Posterior inferior cerebellar arteries patent. Basilar artery patent. Anterior inferior cerebellar arteries poorly visualized. Superior cerebellar arteries patent. Posterior cerebral arteries patent. Posterior communicating arteries hypoplastic or aplastic. Dural venous sinuses: Patent. Other: Allowing for the phase of contrast, brain parenchyma within normal limits. Calvarium intact. IMPRESSION: 1. No evidence of aneurysm, focal vessel occlusion, or significant stenosis of the intracranial arteries. ACT 112: Negative or not required by law. Electronically signed by: Dain Titus M.D. 11/28/2019 5:[address] angio neck with con CLINICAL HISTORY: 79 years-old Male presenting with dizziness, left sided numbness. TECHNIQUE: Multidetector CT angiography of the neck was performed after the administration of intravenous contrast. 3-D volumetric and/or maximum intensity projection (MIP) images were subsequently reconstructed for review. IV contrast: 120 mL of Optiray 320. One or more dose lowering techniques were used consistent with the principles of ALARA (as low as reasonably achievable), including automatic exposure control, mA or kV adjustment to individual patient size, and/or use of iterative reconstruction. Stenosis measurements were based on NASCET-like criteria (distal lumen diameter as the denominator for stenosis measurement). COMPARISON: None. CT DOSE (mGy.cm): The estimated cumulative dose is 1118.95. 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 Aortic arch: Atherosclerosis of the three-vessel aortic arch with patent origins of the branch vessels. Innominate artery: Patent. Right subclavian artery: Patent. Right common carotid artery: Patent. Right internal and external carotid arteries: Right carotid bifurcation with calcified and noncalcified plaque resulting in less than 50% stenosis of the origin of the internal carotid artery. Tortuosity of the ICA noted in the mid to distal segment. ECA widely patent. Left common carotid artery: Patent. Left internal and external carotid arteries: Left carotid bifurcation patent. Left internal and external carotid arteries widely patent. Left subclavian artery: Patent. Vertebral arteries: Codominant vertebral arteries. Origins and courses of the bilateral vertebral arteries patent. Other: Limited intracranial evaluation within normal limits. Soft tissues of the neck normal allowing for the phase of contrast. Degenerative changes of the cervical spine. Lung apices clear. IMPRESSION: 1. Less than 50% stenosis of the origin of the right ICA secondary to atherosclerotic plaque. 2. No other evidence of dissection, focal vessel occlusion, or significant stenosis of the cervical arteries. ACT 112: Negative or not required by law. Electronically signed by: Dain Titus M.D. 11/28/2019 5:42 PM ECG Data Attestation: I personally reviewed and interpreted this ECG as follows: Indication: + chest pain Rate (beats per minute): 62 Rhythm: + sinus rhythm ECG Intervals/blocks: + First degree AV block ECG [place]: + Normal ECG ST segments: no ST depression and no ST elevation ECG Findings: + Other (QTC 430, QRS 86); no PACs and no PVCs Blood Pressure Blood Pressure Findings: Elevated blood pressure Blood Pressure Disposition: further management by hospitalist SHARON Uribe The patient is a pleasant 79-year-old gentleman with a past medical history of fructose intolerance who presents emergency department with episode of substernal chest pressure with associated nausea lightheadedness with the subsequent development of left-sided numbness, given aspirin and nitroglycerin by EMS with resolution of symptoms per HPI. On arrival the patient is in no acute distress, afebrile stable vital signs. The patient appears clinically dry. He is neurologically intact including intact finger-nose, alternating palms and [id number]. He has 5/5 strength and SILT x4 extremities. EKG without overt acute ischemia. Chest x-ray negative for acute process. WBC 4.1, nonspecific. H/H 13/38.1 without prior values for comparison. Platelets within normal limits. Chemistry without acidosis. BUN/creatinine> 20, consistent with the patient's clinically dry appearance. Electrolytes and LFTs unremarkable. Troponin negative/undetectable. Patient was feeling improved after IV fluid hydration. He continued to remain asymptomatic in the emergency department. Heart score 5, moderate risk. Thus, reasonable proceed with inpatient admission. No pleuritic sx and so PE less likely. No tearing pain and equal pulses making dissection less likely. Not positional, pericarditis not likely. Case was discussed with Dr. Mae, [facility] [place] hospitalist, who evaluate the patient for admission. Given the patient's associated symptoms of left-sided numbness CT head/CTA head and neck was requested. Subsequently performed and negative for ICH, ischemia, severe narrowing or occlusion of large vessels. There is right ICA stenosis that is less than 50%. Admitting team was updated. Impression & Plan Substernal chest pain, Near syncope, Dehydration, Left sided numbness Discharge Plan Visit Data *Final* Discharge Date/Time: 11/28/19 16:49 Chief Complaint: Chest Pain ED Provider: Janes Hernandez Discharge Problem: Substernal chest pain, Near syncope, Dehydration, Left sided numbness Patient Disposition: Admitted As Inpatient Discharge Instructions Interventions: ED Discharge Assessment Last Done: 11/28/19 16:49 The scribe's documentation has been prepared under my direction and personally reviewed by me in its entirety. I confirm that the note above accurately reflects all work, treatment, procedures, and medical decision making performed by me.
[2019-11-28] MEDS ORDERED: NITROGLYCERIN SL 0.4 MG/TAB TAB SL PRN (18:25)
[2019-11-28] MEDS ORDERED: ACETAMINOPHEN 325 MG TAB PO PRN (18:25)
[2019-11-28] MEDS ORDERED: HydrALAZINE HCL 20 MG/ML VIAL IV PRN (18:25)
[2019-11-28] MEDS ORDERED: ONDANSETRON INJ 2 MG/ML 2 ML VIAL IV PRN (18:25)
[2019-11-28] MEDS: lisinopriL 20 MG TAB PO SCH (20:34)
[2019-11-28] MEDS ORDERED: ROSUVASTATIN CALCIUM 5 MG TAB PO SCH (21:00)
[2019-11-29 07:05] LABS: Basophils # (auto) 0.01 K/uL (0-0.2); Basophils % (auto) 0.2 %; Eosinophils # (auto) 0.13 K/uL (0-0.5); Eosinophils % (auto) 2.7 %; Hematocrit (blood only) 39.5 % (42-52); Hemoglobin 13.5 g/dL (14.0-18.0); Immature Granulocytes # (auto) 0.01 K/uL (0.00-0.02); Immature Granulocytes % (auto) 0.2 %; Lymphocytes # (auto) 1.61 K/uL (1.2-3.4); Lymphocytes % (auto) 33.2 %; Mean Corpuscular Hemoglobin 32.5 pg (25-34); Mean Corpuscular Hgb Conc 34.2 g/dL (32-36); Mean Corpuscular Volume 95.2 fL (80-100); Mean Platelet Volume 9.8 fL (7.4-10.4); Monocytes # (auto) 0.39 K/uL (0.11-0.59); Neutrophils % (auto) 55.7 %; Platelet Count 236 K/uL (130-400); RDW Coefficient of Variation 12.2 % (11.5-14.5); RDW Standard Deviation 42.2 fL (36.4-46.3); Red Blood Count 4.15 M/uL (4.7-6.1); White Blood Count 4.85 K/uL (4.8-10.8)
[2019-11-29 07:41] LABS: Alanine Aminotransferase 28 U/L (12-78); Albumin Level 3.4 gm/dl (3.4-5.0); Aspartate Aminotransferase 21 U/L (15-37); BUN Creatinine Ratio 17.3 (10-20); Blood Urea Nitrogen 20 mg/dl (7-18); Calcium 9.2 mg/dl (8.5-10.1); Carbon Dioxide 29 mmol/L (21-32); Chloride 107 mmol/L (98-107); Cholesterol 122 mg/dl (0-200); Creatinine Clr Calc Pharmacy 51.7 ml/min; Est GFR (African American) 69.5; Glucose 100 mg/dl (70-99); Potassium 4.3 mmol/L (3.5-5.1); Sodium 141 mmol/L (136-145); Triglycerides 91 mg/dl (0-150); VLDL Cholesterol 18 mg/dl
[2019-11-29] MEDS: lisinopriL 20 MG TAB PO SCH (07:41)
[2019-11-29 07:46] LABS: Albumin Globulin Ratio 1.2 (0.9-2); Alkaline Phosphatase 55 U/L (45-117); Bilirubin,Total 0.6 mg/dl (0.2-1); Chol HDL Ratio 2; Globulin 2.8 gm/dl (2.5-4.0); HDL Cholesterol 51 mg/dl; LDL Cholesterol Calculated 53 mg/dl; Total Protein 6.2 gm/dl (6.4-8.2); Troponin I < 0.015 ng/ml (0-0.045)
[2019-11-29] MEDS ORDERED: ASPIRIN 325 MG ECTAB PO SCH (09:00)
[2019-11-29] MEDS ORDERED: hydroCHLOROthiazide 25 MG TAB PO SCH (09:00)
[2019-11-29] MEDS ORDERED: LORazepam 2 MG/4 ML VIAL ONE (09:44)
[2019-11-29] MEDS ORDERED: GADOBUTROL 65ML VIAL IV PRN (10:15)
--- NOTE | 2019-11-29 10:57 | Magnetic Resonance Report ---
MRI OF THE BRAIN WITHOUT AND WITH IV CONTRAST CLINICAL HISTORY: hypertensive urgency, left sided numbness COMPARISON STUDY: Head CT and CTA of the head November 28, 2019. TECHNIQUE: Utilizing a 1.5 Samara magnet and dedicated coil, multiplanar, multiecho imaging of the br ain was performed pre and postcontrast administration. IV administration of 7.5 mL of Gadavist contr ast was uneventful. FINDINGS: Note is made of a 3 mm punctate hyperintense focus within the right thalamus on axial diffu swathi-weighted sequence image 14 of 50. This is hypointense on the ADC map and has a corresponding T2 hyperintense focus. No additional foci of restricted diffusion are noted. Ventricular system is ana l. Basilar cisterns are patent. There are no extra-axial collections. Flow-voids for the major intrac ranial vessels are present. There is no intracranial mass or pathologic enhancement. White matter T2 hyperintense foci suggest mild small vessel disease. Calvarial signal is normal. Mucous retention cys ts within the bilateral maxillary sinuses are noted. IMPRESSION: 1. 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 No mass effect or hemorrhage. 2. No intracranial mass or pathologic enhancement. 3. Mild small vessel disease. ACT 112: Negative or not required by law. Electronically signed by: Angel Murry M.D. 11/29/2019 10:56 AM
--- NOTE | 2019-11-29 12:04 | Discharge Summary ---
Date of Service November 29, 2019 Admission HPI Per Admitting Provider Andrzej Trammell is a 79 year old male who presented to the ER via EMS due to an episode of lightheadedness, left facial/arm and leg numbness and left chest pain that started around 11:45am today. He was at a surprise birthday constitution party when his symptoms started with lightheadedness and left facial numbness and slowly progressed over minutes to other areas. Initially plan was to drive into hospital but they had to pull out operator and call EMS since his symptoms became worse with associated nausea. EMS noted his blood pressure to be elevated in 200s and he was c/o chest pain therefore he received x2 nitroglycerin sprays with good effect. He denies any headache, loss of consciousness or vomiting. When seen the patient was no longer having any symptoms. 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 In the ER he was worked up for chest pain but not the left sided numbness from his face/arm/leg. He did not have any associated weakness, change in speech/he aring/taste. Advised to get a CT head, CTA head/neck as workup for hypertensive hemorrhage. These were subsequently unremarkable other than < 50% right ICA stenosis. Principal Diagnosis Pt is feeling much better. He has had no return of L sided numbness and weakness. He has been tolerating PO without issue. Pt states that just prior to the onset of numbness/weakness, he had a few episodes of nausea and the feeling like his intestines were "in spasm". Pt states he checks his BP daily and rarely misses, however he did not check it Saturday night as they had been out and he forgot when they returned home. night his BP was at its usual. General readings are 120-130/75-80. He states that he does not miss dosing of his BP meds and did not miss any on Saturday or Saturday. Pt states his sx resolved after receiving nitro from EMS. Pt denies fever, SOB, chest pain, abd pain, n/v/c/d, LE pain or swelling. Discharge Exam Constitutional WD/WN, vitals as above Eyes normal visual lopez by confrontation and + anicteric sclerae Neck normal visual inspection and trachea midline Respiratory normal respiratory effort, lungs clear to auscultation Cardiovascular Rate/Rhythm: regular rate and regular rhythm Gastrointestinal (Abdomen) Inspection/Auscultation: abdomen not distended Percussion/Palpation: abdomen soft; abdomen nontender Musculoskeletal Head/Neck/Chest: normocephalic and head atraumatic Gait: normal gait (ambulates without issue) Skin no rashes, warm and dry Neurologic CN's II-XI intact bilaterally, moves all extremities and awake; not confused Speech / Cognition: normal speech Motor/Sensory: normal movement Psychiatric A+Ox3, euthymic affect Discharge Data Allergies Allergy/AdvReac Type Severity Reaction Status Date / Time Sulfa (Sulfonamide AdvReac Unknown UPSET Unverified 11/28/19 14:31 Antibiotics) STOMACH Consultations 11/28/19 15:37 ED Decision to Admit Stat Ordered Studies 11/28/19 16:45 CT angio head w con Stat CT angio neck with con Stat CT head/brain wo con Stat 11/29/19 09:00 MR brain wo/w con Routine Hospital Course (1) Hypertensive urgency: Left sided numbness and chest pain associated with hypertensive urgency. No end organ damage noted at present on imaging or labs. 3 hours of symptoms before relief from nitroglycerin with EMS and no return of sx Noted problem list of hypertensive urgency and uncontrolled hypertension in the past - patient reports this was prior to being on any anti-hypertensives and is a lot more stable now. No issues on tele monitor overnight and BP controlled during admission Could consider 30 day electronic device monitor as outpatient No changes in BP medications Advised to continue home monitoring It is unclear why BP became suddenly uncontrolled Pt states he has several upcoming flights and is concerned about repeat events in that setting PRN nitro to be used in this setting. Pt and advised that this is not a substitute for seeking care and that if he has return of sx and they resolve with nitro, he should still be evaluated. Pt and agree. (2) Left sided numbness: As above CT head, CTA head/neck, MRI brain all neg for acute issues CTA did note R ICA with <50% stenosis, however this is not significant stenosis Trop neg x3 CBC, PRP WNL LDL 53, HDL 51 TSH WNL CXR neg EKG 1st degree AV block A1c pending on d/c (3) Chest pain, rule out acute myocardial infarction: Serial trop neg, likely related to HTN urgency No significant ischemic symptoms at baseline, may consider stress testing as outpt (4) Fructose malabsorption: Low fructose diet. No recent diarrhea. (5) DVT prophylaxis: Short stay, mobile, no additional risk factors other than age therefore will defer chemical prophylaxis unless he is staying. Total Time Total Time Spent Total Time Spent (In Minutes): >30 Total Time Includes: Examination of the Patient, Discharge Planning, Medication Reconciliation and Other Discharge Plan Discharge Items Patient Disposition: Home - Self-Care Reason For Visit: HYPERTENSIVE URGENCY, CHEST PAIN RULE OU MT Discharge Diagnosis: Hypertensive urgency Activity: Resume your previous activity Non-emergency contact: Primary Care Provider Call non-emergency contact if: you have any medication questions and your symptoms worsen Follow-up/Referrals: VERITO OCHOA M.D. [Primary Care Provider] - (1-2 weeks ) Diet: Regular Diet Comment: low fructose Addtl Attending Provider Instructions: You could consider taking a probiotic. The one I recommend for most patients is Jarrow EPS 5 billion. It is a mix of 8 different bacteria. You can find this product at [employer] in [employer]. You should start with 1 a day. The goal is to have 1 solid bowel movement a day. You can take up to 4 a day, but you want to take the least amount of any type of medication or supplement. If you start having diarrhea, you might be taking too much and should decrease. Pending Studies at Discharge: No Stand-Alone Forms: My [facility], Smoking Cessation Medications and DC Order Prescriptions: New nitroglycerin [Nitrostat] 0.4 mg Tablet, Sublingual 0.4 mg sublingual PRN PRN (Reason: numbness) Qty: 10 RF: 0 Continued aspirin 325 mg Tablet 325 mg PO DAILY RF: 0 lisinopril 20 mg tablet 20 mg PO BID RF: 0 hydrochlorothiazide 12.5 mg capsule 12.5 mg PO DAILY RF: 0 rosuvastatin 5 mg tablet 5 mg PO HS RF: 0 Discharge Orders: Discharge Order (Routine); Ordered 11/29/19 Ordered By: Shanae Bradshaw Admission Data Admit Date/Time: 11/28/19 17:52 Attending Provider: Shanae Bradshaw Admit Provider: Carlton Mae Primary Care Provider: VERITO OCHOA Other Providers: Carmelita,Carlton M. Coding Level of Care Code D/C Day Management >30 mins Diagnoses Hypertensive urgency I16.0 Left sided numbness R20.0 Chest pain, rule out acute myocardial infarction R07.9 Fructose malabsorption E74.8 DVT prophylaxis Z29.9
[2019-11-30 07:06] LABS: Estimated Average Glucose 120 mg/dl; Hemoglobin A1C 5.8 % (4.5-5.6)
== END 2019-11-29 13:01 | disposition home or self-care (01) ==
LOC: 2S 13:29 → ED 13:29 → 2S 16:49 → SUATTDRO 17:52

== ENCOUNTER 2023-11-08 06:21 | Observation (INO) ==
--- NOTE | 2023-09-24 14:07 | PAT Medication Instructions ---
Medication Instructions Date of Service September 24, 2023 Home Medications Medication Instructions Recorded meloxicam 7.5 mg tablet 7.5 mg PO BID PRN pain #30 tabs 07/31/23 methylprednisolone 4 mg tablets in 4 mg PO UD #21 ea 08/14/23 a dose pack (Medrol (Suleman)) tramadol 50 mg tablet 50 mg PO Q8H PRN pain #30 tabs 08/14/23 lisinopril 20 mg tablet 40 mg PO HS aspirin 81 mg tablet,delayed release 81 mg PO HS coenzyme Q10 10 mg capsule (Co Q-10) 10 mg PO QDL [id number]-nlzlhaevm-[id number] 750 mg-100 mg-125 mg-1.65 mg tablet (Glucosamine Chondroit Complx Advan) 1 tab PO BID chlorthalidone 25 mg tablet 25 mg PO Q OTHER DAY doxazosin 1 mg tablet 2 mg PO HS rosuvastatin 5 mg tablet 15 mg PO .qod meloxicam 7.5 mg tablet 7.5 mg PO BID PRN pain methylprednisolone 4 mg tablets in a dose pack (Medrol (Suleman)) 4 mg PO UD tramadol 50 mg tablet 50 mg PO Q8H PRN pain 3] amoxicillin 875 mg-potassium clavulanate 125 mg tablet 1 tab PO BID omeprazole 20 mg tablet,delayed release 20 mg PO BID Continue as directed rosuvastatin 5 mg tablet 15 mg PO .qod methylprednisolone 4 mg tablets in a dose pack (Medrol (Suleman)) 4 mg PO UD (if needed) amoxicillin 875 mg-potassium clavulanate 125 mg tablet 1 tab PO BID ASK your surgeon for instructions meloxicam 7.5 mg tablet 7.5 mg PO BID PRN pain STOP taking 2 weeks before surgery coenzyme Q10 10 mg capsule (Co Q-10) 10 mg PO QDL sioyjjtwebx-jnwfbsysd-mhjz701-hyal 750 mg-100 mg-125 mg-1.65 mg tablet (Glucosamine Chondroit Complx Advan) 1 tab PO BID DO NOT take the morning of surgery chlorthalidone 25 mg tablet 25 mg PO Q OTHER DAY Take morning of surgery With a small sip of water, OTHERWISE NOTHING TO EAT OR DRINK AFTER MIDNIGHT: tramadol 50 mg tablet 50 mg PO Q8H PRN pain (if needed) omeprazole 20 mg tablet,delayed release 20 mg PO BID Take evening before surgery lisinopril 20 mg tablet 40 mg PO HS aspirin 81 mg tablet,delayed release 81 mg PO HS (unless surgeon directed otherwise) doxazosin 1 mg tablet 2 mg PO HS tramadol 50 mg tablet 50 mg PO Q8H PRN pain (if needed) omeprazole 20 mg tablet,delayed release 20 mg PO BID Other Notes If you have any questions please call us at [phone] or [phone] or [phone] or [phone]
--- NOTE | 2023-09-30 11:32 | Anesthesiology Consultation ---
Date of Service September 30, 2023 Assessment & Plan (1) Encounter for pre-operative examination: Plan - will await upcoming echocardiogram scheduled for this week per patient ordered by PCP. - Case discussed in detail with Dr. Matta including anemia, residual sinus symptoms with upcoming imaging planned by PCP and follow-up/treatment with [facility] for gastritis. He advised nothing additional is needed prior to surgery from his standpoint other than follow-up on echocardiogram report. - Outpatient joint assessment: Patient is currently scheduled for inpatient pathway. If re-evaluated and patient/surgeon requests outpatient pathway, patient is not recommended candidate for outpatient joint program from anesthesia standpoint. Chart Review Chart Review: Pending: Refer to Additional Notes / Consult section and Patient seen in Pre Admission Testing Teaching & Discussion Pre-Anesthesia Teaching/Discussion Notes: Instructed NPO after midnight before surgery, except medications with 15 cc of water. Medication instructions provided according to the PAT guidelines. History Surgery Operation Date: 11/08/23 09:00 Proposed Procedures p Right Total Hip Arthroplasty Anterior - Levi Crawley, Height/Weight Height: 5 ft 7 in Weight: 81.3 kg Allergies Allergy/AdvReac Type Severity Reaction Status Date / Time Sulfa (Sulfonamide AdvReac Unknown Gastrointestinal Verified 09/24/23 11:11 Antibiotics) Upset Medications Home Medications Medication Instructions Recorded Confirmed Last Taken lisinopril 20 mg tablet 40 mg PO HS 11/28/19 09/24/23 09/20/20 aspirin 81 mg tablet,delayed 81 mg PO HS 03/23/20 09/24/23 09/20/20 release coenzyme Q10 10 mg capsule (Co 10 mg PO QDL 05/31/20 09/24/23 Unknown Q-10) ctospikxnfu-ypxojbdiq-[id number]-hyal 1 tab PO BID 05/31/20 09/24/23 Unknown 750 mg-100 mg-125 mg-1.65 mg tablet (Glucosamine Chondroit Complx Advan) chlorthalidone 25 mg tablet 25 mg PO Q OTHER DAY 08/10/22 09/24/23 Unknown doxazosin 1 mg tablet 2 mg PO HS 08/10/22 09/24/23 Unknown rosuvastatin 5 mg tablet 15 mg PO .qod 08/13/22 09/24/23 Unknown meloxicam 7.5 mg tablet 7.5 mg PO BID PRN pain #30 tabs 07/31/23 09/24/23 Unknown methylprednisolone 4 mg tablets in 4 mg PO UD #21 ea 08/14/23 09/24/23 Unknown a dose pack (Medrol (Suleman)) tramadol 50 mg tablet 50 mg PO Q8H PRN pain #30 tabs 08/14/23 09/24/23 Unknown omeprazole 20 mg tablet,delayed 20 mg PO BID 09/24/23 09/24/23 Unknown release amitriptyline 10 mg tablet 5 mg PO HS 09/30/23 09/30/23 Unknown fluticasone propionate 50 1 spray intranasal BID 09/30/23 09/30/23 Unknown mcg/actuation nasal spray,suspension sucralfate 1 gram tablet 1 g PO AC 09/30/23 09/30/23 Unknown Additional Notes: Patient was advised to continue amitriptyline as usual if prescribing provider has no other recommendations-he plans to check with prescribing provider. He was instructed to not take sucralfate day of surgery. He was advised to continue Flonase as usual. This was also written on provided medication instructions. He verbalized understanding and agreement, denied questions, concerns or additional medications. Past Medical History Medical History (Updated 09/30/23 @ 11:54 by Luz Del Rio PA-C) Neck pain chronic, denies change or worsening, denies upper extremity paresthesias History of diverticulitis last episode 06/2023 IBS (irritable bowel syndrome) Gastritis flare with antibiotics for recent sinus infection, following with [facility], upcoming endoscopy 10/10/23; denies change or worsening, notes improvement with recently starting amitriptyline and sucralfate Stroke 2019 > [facility] > very minimal numbness in left hand at times, but not bothersome > no neuro Hyperlipidemia Sinus infection finishing Augmentin on 09/25/23, notes residual nasal drip Acquired bilateral renal cysts Gross hematuria Fructose malabsorption follows a FODMAT diet at present Hypertension controlled, stable per pt Patient denies h/o seizures, heart attack, heart failure, DM, blood clots/DVTs or blood transfusions. Exercise / Class Metabolic Activity II 4-5 Yardwork/Stairs/Walk up hill (denies chest discomfort or shortness of breath with 1 FOS) Past Family History Family History Other No significant family history Past Surgical History Surgical History History of cataract surgery bilat History of cholecystectomy [place] teeth extracted History of adenoidectomy History of tonsillectomy History of esophagogastroduodenoscopy (EGD) History of colonoscopy H/O thumb surgery Right Past Anesthesia History No Hx of Anesthesia Complications and No Family Hx of Anesthesia Complications History of PONV No Hx of PONV and No Hx of Motion Sickness Social History Smoking Status: Former smoker Do You Dip or Chew Tobacco: No Smoking End Date: 60 yrs ago Hx Alcohol Use: Yes Alcohol type: wine alcohol intake frequency: a few times a week Hx Substance Use: No substance use type: does not use Review of Systems Patient denies chest pain, shortness of breath, dyspnea on exertion, snoring, witnessed apneas, fever, chills, cough, wheezing, or palpitations. Physical Exam Vital Signs Vitals BP 135/81 P 67 TEMP 97.8 SP02 97% on RA RESP 17 Physical Patient resting comfortably in chair in no acute distress, alert and oriented, responding appropriately throughout visit Full cervical extension range of motion without pain TMD 3.5 finger breadths Mallampati Score 3 Dentition: intact, denies chipped or loose teeth, caps/crowns, implants or bridges Lungs: normal respiratory effort. Good air movement, clear throughout to auscultation, no adventitious breath sounds Cardiac: regular rate and rhythm, 2/6 systolic murmur Carotid arteries: negative bruit bilat Lab Results Anesthesia Preop Results Results Anesthesia Widget: WBC 4.45 K/ul (4.8-10.8) L 09/30/23 Hgb 12.0 g/dl (14.0-18.0) L 09/30/23 Hct 35.3 % (42.0-52.0) L 09/30/23 Plt 245 K/uL (130-400) 09/30/23 Na 138 mmol/L (136-145) 09/30/23 K 3.8 mmol/L (3.5-5.1) 09/30/23 Cl 102 mmol/L (98-107) 09/30/23 CO2 29 mmol/L (21-32) 09/30/23 BUN 28 mg/dl (6-23) H 09/30/23 Creat 1.03 mg/dl (0.6-1.4) 09/30/23 Glucose Level 105 mg/dl (70-99(Fasting)) H 09/30/23 PT 11.5 Seconds (9.0-12.0) 09/30/23 PTT 26 Seconds (21-31) 09/30/23 INR 1.1 (0.9-1.1) 09/30/23 Blood Type A Negative 09/30/23 Antibody Screen NEGATIVE 09/30/23 Testing Electrocardiogram Date: 06/24/23 NSR, rate 60 bpm Chest X-Ray Date: 12/10/22 No pneumothorax. No pleural effusions. Right basilar linear densities persist and favor subsegmental atelectasis. Otherwise, the lungs are clear. The heart is normal in size. There is a mildly tortuous thoracic aorta. 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 Prior cholecystectomy. Degenerative changes within the thoracic spine. IMPRESSION: No significant change compared to the prior study. No acute process. Other Testing CT abdomen pelvis 06/24/23 1. Mild acute sigmoid diverticulitis. 2. No evidence for a bowel obstruction. 3. Normal appendix. 4. Additional stable findings as described above. Head and neck CTA 11/28/19 1. Less than 50% stenosis of the origin of the right ICA secondary to atherosclerotic plaque. 2. No other evidence of dissection, focal vessel occlusion, or significant stenosis of the cervical arteries. No evidence of aneurysm, focal vessel occlusion, or significant stenosis of the intracranial arteries.
--- NOTE | 2023-11-07 07:39 | History & Physical Report ---
Date of Service November 07, 2023 Assessment & Plan (1) Hip arthritis: We will proceed with a right anterior total of arthroplasty. Postoperatively he will be started on aspirin for DVT prophylaxis and kept overnight in the hospital for postop medical management. He plans to use energy physical therapy upon discharge. History of Present Illness Chief Complaint: Osteoarthritis of the right hip. Primary Care Provider: Ricardo Steve MD Andrzej is a pleasant 83-year-old male who has been dealing with chronic increasing right hip pain. He has been following up with my partner, Dr. Harris. He has tried an injection to his hip that gave him complete relief, but then wore off. He is now using a crutch because of this hip pain. He has x-rays, which showed advanced osteoarthritis. After failing conservative treatment, he has elected to proceed with a right anterior total of arthroplasty. Allergies Allergy/AdvReac Type Severity Reaction Status Date / Time Sulfa (Sulfonamide AdvReac Unknown Gastrointestinal Verified 09/24/23 11:11 Antibiotics) Upset Home Medications Medication Instructions Recorded Confirmed Type lisinopril 20 mg tablet 40 mg PO HS 11/28/19 09/24/23 History aspirin 81 mg tablet,delayed 81 mg PO HS 03/23/20 09/24/23 History release coenzyme Q10 10 mg capsule (Co 10 mg PO QDL 05/31/20 09/24/23 History Q-10) wwzawocxbuv-srqwmlkhg-eimr034-hyal 1 tab PO BID 05/31/20 09/24/23 History 750 mg-100 mg-125 mg-1.65 mg tablet (Glucosamine Chondroit Complx Advan) chlorthalidone 25 mg tablet 25 mg PO Q OTHER DAY 08/10/22 09/24/23 History doxazosin 1 mg tablet 2 mg PO HS 08/10/22 09/24/23 History rosuvastatin 5 mg tablet 15 mg PO .qod 08/13/22 09/24/23 History meloxicam 7.5 mg tablet 7.5 mg PO BID PRN pain #30 tabs 07/31/23 09/24/23 Rx methylprednisolone 4 mg tablets in 4 mg PO UD #21 ea 08/14/23 09/24/23 Rx a dose pack (Medrol (Suleman)) tramadol 50 mg tablet 50 mg PO Q8H PRN pain #30 tabs 08/14/23 09/24/23 Rx omeprazole 20 mg tablet,delayed 20 mg PO BID 09/24/23 09/24/23 History release amitriptyline 10 mg tablet 5 mg PO HS 09/30/23 09/30/23 History fluticasone propionate 50 1 spray intranasal BID 09/30/23 09/30/23 History mcg/actuation nasal spray,suspension sucralfate 1 gram tablet 1 g PO AC 09/30/23 09/30/23 History polyethylene glycol 3350 17 17 g PO DAILY 10/28/23 10/28/23 History gram/dose oral powder (Miralax) Past Med/Surg History Medical History Pulmonary hypertension mild, PASP 37 mmHg Tricuspid regurgitation moderate Dilated aortic root Dilated aortic root 4 cm Neck pain chronic, denies change or worsening, denies upper extremity paresthesias History of diverticulitis last episode 06/2023 IBS (irritable bowel syndrome) Gastritis flare with antibiotics for recent sinus infection, following with [facility], upcoming endoscopy 10/10/23; denies change or worsening, notes improvement with recently starting amitriptyline and sucralfate Stroke 2020 > [facility] > very minimal numbness in left hand at times, but not bothersome > no neuro Hyperlipidemia Sinus infection finishing Augmentin on 09/25/23, notes residual nasal drip Acquired bilateral renal cysts Gross hematuria Fructose malabsorption follows a FODMAT diet at present Hypertension controlled, stable per pt Surgical History History of cataract surgery bilat History of cholecystectomy [place] teeth extracted History of adenoidectomy History of tonsillectomy History of esophagogastroduodenoscopy (EGD) History of colonoscopy H/O thumb surgery Right Family History Other No significant family history Social History Smoking Status: Former smoker Smoking End Date: 60 yrs ago; Second Hand Exposure: No; Do You Dip or Chew Tobacco: No; Tobacco Cessation Education Requested by Patient: No Hx Alcohol Use: Yes Alcohol type: wine Hx Substance Use: No Preferred Language: Italian Communication Ability: Effective Spike Maker Required: No Beliefs That Will Affect Care: None Current Living Situation: Spouse Other Information That Helps Us Care for You: No Feels Safe at Home: Yes Safety Concerns: Feels Safe At This Time Assistive Devices: None Review of Systems All systems reviewed & are unremarkable except as noted in HPI & below. Physical Exam On physical examination the right hip, he has decreased range of motion. He has pain with forced internal/external rotation.. Constitutional WD/WN, vitals as above Eyes PERRL, conjunctivae normal, anicteric sclerae ENMT external ear and nose normal, oropharynx normal Neck trachea midline, no thyromegaly Respiratory normal respiratory effort Cardiovascular RRR, no murmur, no edema Gastrointestinal (Abdomen) normal bowel sounds, soft, nontender, no hepatosplenomegaly Psychiatric A+Ox3, euthymic affect Results & Data Results & Data Laboratory Results . Diagnostic Findings X-rays of the right hip show advanced osteoarthritis with joint space narrowing, osteophyte formation, and [id number] articulation. PG Care Time/CCT Total # of Minutes Spent Total Time Spent with Patient: Total time spent is greater than 50% in coordination of care (as documented) at patient's floor/unit and/or counseling patient: Coding Level of Care Code None Diagnoses Hip arthritis M16.10
[~2023-11-08 06:21] MED LIST changes: +ACETAMINOPHEN 500 MG TAB PO SCH; -ASPEC81 PO; -COEN75CA PO; -CRS/10 PO; +FAMOTIDINE 20 MG TAB PO SCH; +GABAPENTIN 300 MG CAP PO SCH; -GLUC250C PO; -HYDR12.55 PO; -LISI20TA3 PO; +LR 500ML BOLUS, THEN 15ML/HR IV SCH; +LR 60ML/HR IV SCH; -MULTTAB58 PO; +ROPIV 0.5% 246mg, Ketorolac 30mg, EPINEPHrine 0.5mg in NSS INFIL SCH; +TRANEXAMIC ACID 1,000 MG **IV Intra-op IV SCH; +TRANEXAMIC ACID 1,000 MG **IV Pre-op IV SCH; +ceFAZolin 2000MG 2,000 MG/15 ML SYR IV SCH; +dexAMETHasone**PF** 10 MG/ML VIAL IV SCH
[2023-11-08] MEDS ORDERED: BUPIVACAINE 0.5 % 5 MG/1 ML PF 10ML VIAL ONE (06:25)
--- NOTE | 2023-11-08 06:34 | History & Physical Bridge Note ---
Date of Service November 08, 2023 History & Physical Bridge Note I have examined the patient, reviewed the History & Physical and in the interval since the performance of the History & Physical I have noted the following changes of clinical significance: no changes noted
[2023-11-08] MEDS ORDERED: ORTHO JOINT ANESTHETIC ONE (07:06)
[2023-11-08] MEDS ORDERED: MIDAZOLAM HCL 1 MG/ML 2ML VIAL ONE (07:11)
[2023-11-08] MEDS ORDERED: ONDANSETRON INJ 2 MG/ML 2 ML VIAL IV PRN ×2 (07:11→11:36)
[2023-11-08] MEDS ORDERED: ATROPINE SULFATE 0.1 MG/ML 10ML SYR IV PRN (07:11)
[2023-11-08] MEDS ORDERED: ePHEDrine sulfate 50 MG/ML AMP IV PRN (07:11)
[2023-11-08] MEDS ORDERED: fentaNYL citrate PF 100 MCG/2 ML VIAL IV PRN (07:11)
[2023-11-08] MEDS ORDERED: PROPOFOL IV EMULSION 10 MG/ML 20 ML VIAL IV ONE ×2 (07:21→09:01)
[2023-11-08] MEDS ORDERED: ONDANSETRON INJ 2 MG/ML 2 ML VIAL ONE (07:21)
--- OUTSIDE RECORDS SUMMARY | 2023-11-08 07:37 | External Medical Summary | Continuity of Care Document ---
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 Name Role Phone Ricardo Steve Primary Care Physician [phone] Encounter [facility] [id number] Date(s): 10/29/23 - 10/29/[address] [address] [phone] Encounter Diagnosis IBS (irritable bowel syndrome)(Discharge Diagnosis) - 10/29/23 Gastric erosion(Discharge Diagnosis) - 10/29/23 Left sided abdominal pain(Discharge Diagnosis) - 10/29/23 GERD (gastroesophageal reflux disease)(Discharge Diagnosis) - 10/29/23 Discharge Disposition: Home or Self Care Attending Physician: CALLI Unger Kelli Jo Referring Physician: CALLI Unger Kelli Jo Allergies, Adverse Reactions, Alerts Substance Reaction Severity Status Allergy Not found in Search fructose IBS Active amLODIPine edema Active Assessment and Plan Extracted from: Title:Office Visit Note Author:CALLI Unger Kell i Jo Date:10/29/23 1.IBS (irritable bowel syn drome) 2.Left sided abdominal pain 3.GERD (gastroesophageal reflux disease) 4.Gastric erosion The patient is an 83-year-old malewhopresents in the office todayfor evaluation due to left upper quadrant abdominal pain and nausea. Patient does feel that his amitriptyline has helped, we will continue this at 10 mg nightly. There was discussion somewhere with the provider that his amitriptyline may be the cause of his elevated blood pressure; I have discussed with patient that the side effects of amitriptyline are typicallylow blood pressureand that I do notfeel that this is the cause of his increasedsystolic pressure today. I have recommended patientseek follow-up with his PCP regarding hypertension. Recheck in the office at the close of appointment was 144/84. -I have stressedfollowing the GERD diet including abstaining fromwine consumption. He is agreeable Continue omeprazole 20mg po BID but will consider change ofPPI, giventhat Gavisconalso seems to improve symptoms. -10/10/2023 EGD: Normal esophagus.Normal stomach. Normal examined duodenum -Addedsucralfateto patient's regimen for before meals. Has since discontinued and notes no change in symptoms Patient has had EGD,colonoscopy, and CT abdomen pelviswith no explanatory findings for hisleft upper quadrant abdominal pain. Patient has CT angiography todayat 3 PM. We will await these resultsand formulate additional plan. GI follow up in6-8 weeks, sooner if needed. I have spent54 minutes in evaluation, education and documentation of this pt in both face to face and non-face to face activities. 10 Minutes spent pre-charting 37 Minutes spent face to face evaluation. 7minutes spent documenting Immunizations Given and Recorded Vaccine Date Status Refusal Reason influenza virus vaccine, inactivated 08/16/22 Jordan rded influenza virus vaccine, inactivated 07/11/21 Jordan rded influenza virus vaccine, inactivated 07/05/20 Jordan rded influenza virus vaccine, inactivated 08/25/19 Jordan rded influenza virus vaccine, inactivated 1 08/08/18 Re corded influenza virus vaccine, inactivated 07/24/17 Give n influenza virus vaccine, inactivated 08/01/16 Give n influenza virus vaccine, inactivated 08/25/15 Give n influenza virus vaccine, inactivated 07/14/14 Give n influenza virus vaccine, inactivated 07/10/12 Give n SARS-CoV-2 mRNA ([id number]) 03/21/22 Re corded SARS-CoV-2 (COVID-19) mRNA-1273 vaccine 12/19/20 R ecorded SARS-CoV-2 (COVID-19) mRNA-1273 vaccine 11/21/20 R ecorded pneumococcal 23-valent vaccine 06/06/20 Recorded pneumococcal 23-valent vaccine 11/02/02 Recorded zoster vaccine, inactivated 2 07/16/18 Recorded zoster vaccine, inactivated 3 05/06/18 Recorded tetanus/diphtheria/pertuss, acel (Tdap) 04/16/17 G iven tetanus/diphtheria/pertuss, acel (Tdap) 04/02/07 R ecorded pneumococcal 13-valent vaccine 01/19/15 Given zoster vaccine live 01/15/07 Recorded 1Location History: [facility] 2Location History: [facility] 3Location History: [facility] Medications aspirin 81 mg oral delayed release tablet Start: 01/18/20 10:33:00 EDT, 1 tab, PO, qhs, Disp# 100 tab, Refills: 10, given to patient Start Date: 01/18/20 Status: Ordered chlorthalidone 25 mg oral tablet Start: 05/28/23 8:26:00 EDT, 1 tab, PO, q48h, Disp# 45 tab, Refills: 4, Pharmacy: [id number] Start Date: 05/28/23 Stop Date: 08/20/24 Status: Ordered doxazosin 1 mg oral tablet Start: 08/12/23 12:22:00 EDT, See Instructions, Disp# 180 tab, Refills: 0, TAKE 1 TABLET BY MOUTH EVERY DAY AND INCREASE TO TAKE 2 TABLETS BY MOUTH EVERY DAY AFTER 7 DAYS, Pharmacy: [id number] Start Date: 08/12/23 Status: Ordered Gaviscon Extra Strength 160 mg-105 mg oral tablet, chewable Start: 01/18/20 11:02:00 EDT, 2 tab, PO, pc and hs, Disp# 100 tab, Refills: 1, Pharmacy: [id number] Start Date: 01/18/20 Status: Ordered glucosamine-chondroitin 200 mg-250 mg oral capsule Start: 10/07/12 7:56:00, 1 cap, PO, Daily Start Date: 10/07/12 Status: Ordered lisinopril 20 mg oral tablet Start: 05/28/23 8:26:00 EDT, 1 tab, PO, bid, Disp# 180 tab, X 90 day, Refills: 3, Stop: 05/22/24 8:26:00 EDT, Pharmacy: [id number] Start Date: 05/28/23 Stop Date: 05/22/24 Status: Ordered omeprazole 20 mg oral delayed release capsule Start: 08/20/23 14:46:00 EDT, 1 cap, PO, bid, Disp# 180 cap, Refills: 0, Note to Pharmacy: Will need to be refilled at once daily, Pharmacy: [id number] Start Date: 08/20/23 Stop Date: 11/18/23 Status: Ordered rosuvastatin 10 mg oral tablet Start: 12/05/22 9:34:00 EST, Pt states 15mg every other day Start Date: 12/05/22 Status: Ordered rosuvastatin 5 mg oral tablet Start: 07/09/23 13:20:00 EDT, See Instructions, Disp# 90 tab, Refills: 3, TAKE 1 TABLET BY MOUTH EVERY DAY, Pharmacy: [id number] Start Date: 07/09/23 Status: Ordered ubiquinol Start: 09/26/16 13:19:00, PO, Daily Start Date: 09/26/16 Status: Ordered Mental Status 10/29/23 Barriers to Learning one year None evide nt Mandatory Health Literacy Documentation Yes Health Literacy Communication Barriers N ever Primary Language Bahraini Problem List Condition Confirmation Course Effective Dates Status Health Status Informant Positive lactulose breath hydrogen test Confirmed Active ARF (acute renal failure) Confirmed Active Anemia Confirmed Active Arthritis Confirmed Active Benign nevus Confirmed Active Hematuria Confirmed Active Bilateral carpal tunnel syndrome Confirmed Active Chronic rhinitis Confirmed Active Fructose malabsorption Confirmed Active Family history of skin cancer 1 Confirmed Active Tingling of left upper extremity Confirmed Active First degree AV block Confirmed Active Left foot pain Confirmed Active Former smoker Confirmed Active GERD (gastroesophageal reflux disease) Confirmed Active Hammertoe of left foot Confirmed Active History of stroke Confirmed Active Hypercholesterolemia Confirmed Active HYPERTENSION Confirmed Active Impaired fasting glucose Confirmed Active Plantar plate injury Confirmed Active IBS (irritable bowel syndrome) Confirmed Active Left sided abdominal pain Confirmed Active Low back pain Confirmed Active Strain of right psoas muscle Confirmed Active 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 PND (post-nasal drip) Confirmed Active SK (seborrheic keratosis) Confirmed Active Sinus bradycardia Confirmed Active Tricuspid regurgitation Confirmed Active 1sister Diagnosis Diagnosis Type Effective Dates Health Status Cl inical Service Informant GERD (gastroesophagea l reflux disease) Discharge Diagnosis 10/29/23 Gastric erosion Discharge Diagnosis 10/29/23 Left sided abdominal pain Discharge Diagnosis 10/29/23 IBS (irritable bowel syndrome) Discharge Diagnosis 10/29/23 Procedures Procedure Date Related Diagnosis Body Site Status EGD - esophagogastroduodenos copy 1, 2, 3 10/10/23 Completed Colonoscopy 4, 5 09/03/23 Complete d EGD - Esophagogastroduodenos copy 6, 7, 8 07/15/[address] of abdomen and pelvis 9 01/21/23 Completed Chest x-ray 10 12/10/[address] of abdomen and pelvis 11 08/01/22 Completed Colonoscopy 12 05/22/22 Completed Laser eye surgery 13 06/15/20 Comp leted Hydrogen breath test 14 05/31/20 C ompleted Shave biopsy and cauterization of skin 11/05/18 Completed Shave biopsy and cauterisation of skin 02/12/[address] of head 15 03/01/17 Completed Cataract extraction 16 12/2016 Co mpleted Upper GI 17 03/03/14 Completed Colonoscopy 18 02/15/12 Completed Cholecystectomy Completed Endoscopy 19 Completed excision of lipoma right flank Completed T & A Completed vasectomy Completed 1Followup with our clinic as needed 2- Normal esophagus. - Normal stomach. Biopsied. - Normal examined duodenum. 3gastric antrum Mild chronic gastritis with admixed features of reactive gastropathy. COMMENT: There is no evidence of intestinal metaplasia, dysplasia or carcinoma. The H&E- stained sectionsshow no morphologic evidence of Helicobacter pylori. 4- Diverticulosis in the sigmoid colon, in the descending colon and in the transverse colon. - The examination was otherwise normal. - No specimens collected. 5- No repeat colonoscopy due to age. 6- Follow up as scheduled. 7Gastric antrum, biopsy: Marked congestion and epithelial repair compatible with healing erosion-ulcer associated with minimal background inflammation. COMMENT: Histologic features of Helicobacter pylori infection not identified. The changes are more compatible with reactive gastropathy-healing erosive gastritis such as that seen with NSAID use and bile reflux. 8- Normal esophagus. - Erosive gastropathy. Biopsied. - Normal examined duodenum. 9Impression: No acute findings in the ABD or pelvis 10Impression: No significant change compared to the prior study. No acute process 11Impression: 1. No renal or ureteral stones. No hydronephrosis 2. Mild Fullness within the right upper pole collecting system likely due to mass effect from the large adjacent cyst 3. No bladder wall thickening 4. Questionable circumferential thickening within the proximal acending colon. This could be due tounderdistention However , if not recently performed a colonoscopy is recommended to exclude the posibility of colonic mass 5. Additional findings as described 12COLO to TI, cecal polyp 4 mm CF, random AC and sigmoid bx, rectal polyp 2 mm CF, diverticulosis. 13for scar tissue on lens after cataracts 14Since his hydrogen levle got up to 29 with a baseline of 8, this is greater than or equal to 20 parts per minute above baseline, indicating a positive test for bacterial overgrowth. 15No acute findings. 16bilateral extractions and lens implants 17with biopsies- Dr. Olivarez 18diverticulum repeat in 10 years 19IMPRESSION: Normal esophagus Erosive gastropathy. Biopsied Normal examoned duodenum Vital Signs Most recent to oldest [Reference Range]: 1 2 Patient Weight 83.8 kg (10/29/23 8:30 AM) Heart Rate 82 bpm (10/29/23 8:30 AM) Respiratory Rate 16 br/min (10/29/23 8:30 AM) Blood Pressure 144/84mmHg (10/29/23 9:32 AM) 170/78mmHg (10/29/23 8:30 AM) Cuff Pulse Pressure 60 mmHg (10/29/23 9:32 AM) 92 mmHg (10/29/23 8:30 AM) Social History Social History Type Response Tobacco Former smoker, 0.5 p er day. 6 year(s). Total pack years: 3. Started age 20 Years. Stopped age 26 Years. Smoking Status Former Smoker, quit > 1 yr Sex Male Gastroenterology Outpatient Note * CALLI Unegr, Maureen Reynolds: PERFORM Event Display: Gastroenterology Outpt Note Authored Date: Chief Complaint follow up, blood pressures have been high, last night stomach bothered him. has not been really great History of Present Illness The patient is a pleasant [id number]-[id number] presents today forfollow-up evaluation ofupperabdominal discomfort. [facility],and past medical historyreviewed. Prior records: 03/03/2014: EGD notes reviewed performed due to history of left upper quadrant abdominal pain demonstrated second part of the duodenum which was normal with biopsies obtained for evaluation of celiac disease. Examined stomach was normal with biopsies obtained for H. pylori. The examined esophagus was normal. Pathology results demonstrated no significant abnormalities, negative celiac biopsy,negative H. pylori testing. 06/01/2020: Hydrogen breath testing for bacterial overgrowth results are reviewed hydrogen level got up to 29 with a baseline of 8, this is greater than or equal to 20 parts per minute above baseline, indicating a positive test for bacterial overgrowth. 05/22/2022: Colonoscopy notes reviewed performed due to history of change in bowel habits which demonstrated a normal-appearing terminal ileum. 4 mm polyp in the cecum which was sessile and removed. 2 mm polyp in the rectum which was sessile and removed. Sigmoid and ascending colon were normal with biopsies obtained for eval of microscopic colitis. Multiple small large mouth diverticula found from sigmoid to ascending colon. Large internal hemorrhoids found during retroflexion. Entireexamined colon was significantly redundant. Pathology results demonstrated no significant abnormalities on random biopsies. 1 serrated polyp. One lymphoid tissue polyp. Recommendation for follow-up colonoscopy in 5 years (05/2027) 07/05/2022 GI OV:The patient has had longstanding history of IBS. Previously followed in the clinic by Dr. Olivarez. [facility]He follows low FODMAP diet. He reports that he getsabdominal pain in his left lower quadrant between 3 and 4AM approximately 4 to 5 days a week. He states sometimes omeprazole helps but sometimes it does not. He also reports rotating probiotics will help at times as well. Currently using a product called bio complete 3which is a probiotic formulation which seems to be helpful. Denies any fever,chills, night sweats, unintentional weight loss. Denies dysphagia. He reports that he does havea history of heartburnthat is well maintained on omeprazolewhich she rotates with famotidine. No nausea or vomiting. Intermittent left lower quadrant pain particularly at night that wakes him. Bowel movement dailyreports ranges from a Hopkins type III to a Hopkins type V or . Deniesany melena or hematochezia. He was on amitriptyline which was helping his symptoms however he developedissues withprolonged tirednessdizziness,lightheadedness. 11/09/2022 GI OV:The patient presents today for routine follow-up of IBS. He followed with Dr. Olivarez for many years. He reports that he has hadsome struggles but not with his IBS since last evaluated. He had tosee physical therapy and decreased amount of walking due to an injury. He also had some hematuria and is being worked upby his primary care andurology. He did trial the nortriptylinethat was recommended at his last office visit but did not care for side effects includinglingering fatigue in the morning and dry mouth. He took this for approximately 1 week beforediscontinuing it. He also reports that he tried the dicyclomine and felt that he was foggy the day after taking it. So he is also discontinued this medicine. He is using a [employer] probiotic blindas well as fiber. He notices more formed stools with use of the probiotics. He has good days that he follows the low FODMAPs diet. Denies any fever, chills, night sweats, unintentional weight loss. He does get some intermittent nausea but denies vomiting. Heartburn well con trolled with use of omeprazole. Denies dysphagia. He is on 81 mg aspirin. Denies routine NSAID use. He does get some left-sided mid to lower abdominal pain in the evenings. He does feel this is gas related. Bowel movement typically daily sometimes every 2 days. Denies melena or hematochezia. He is currently walking approximately 1 mile every other day. 06/20/2023 GI OV:The patient presents today for evaluation for evaluation of upper abdominal discomfort that he will discomfort that has been ongoing now for2 months. He states thathe has beenwell controlled with use [id number] probioticregimen withnormal bowel movementands ignificant decrease in abdominal discomfort. Late March he began experiencingabdominal symptoms afterdrinking beeron 2 separate occasions. He then again had trigger after drinking wine. Now noting nausea after eating with burning in hisleft sided upper abdomen. Had stool testing for H. pylori on PPI which was negative. He hasno fever, chills, night sweats, sore throat, cough. Does note some hoarseness of voice. Denies dysphagia. Nausea as noted without vomiting. On omeprazole 20 mg p.o. twice daily. He is usingGavisconchewable tabletsas needed when with pain. Pain is mid upper abdomen on the left side. Stools initially formed and became soft and loose now diarrhea. He is excepthe is experiencing bowel movements every1 to 2 days. Deniesdenies any melena or hematochezia. 06/24/2023: Abdomen and pelvis CT with IV contrast was obtained due to left upper and left sided abdominal pain demonstrated Mild dependent changes seen at the lung bases. No pneumoperitoneum. No pneumatosis. No acute fractures identified. There is a tiny hiatus hernia. A 9 mm hypodense lesion withinthe right hepatic lobe is technically too small to characterize but remain stable. This favors a cyst. The main portal vein is patent. Prior cholecystectomy. The adrenal glands and pancreas are unremarkable. Small amount of low density soft tissue posterior to the spleen remains stable. Therefore, this is of doubtful clinical significance. Bilateral renal hypodense lesions are again noted. These favor cysts. No hydronephrosis. No ureteral or bladder stones identified. Normal caliber abdominal aorta with moderate calcified plaque. No retroperitoneal or pelvic lymphadenopathy. The bladder is mildly distended. The prostate gland is mildly enlarged. There is a single inflamed diverticulum with minimal pericolonic fat stranding on image 297 at the mid sigmoid colon. This favors a mild acute sigmoid diverticulitis. No perforation or abscess identified. No dilated loops of bowel to suggest an obstruction. Normal appendix. IMPRESSION: 1. Mild acute sigmoid diverticulitis. 2. No evidence for abowel obstruction. 3. Normal appendix. 07/15/2023: EGD notes are reviewed performed due to history of epigastric abdominal pain which demonstrated normal esophagus. There were few dispersed 2 mm erosions in the gastric antrum with biopsies obtained for histology. The exam of the stomach was normal. The examined duodenum was normal. Pathology results demonstrated gastritis with negative H. pylori. 07/24/2023 GI OV:The patient presents today for follow-up of nausea and upper abdominal discomfort. He has had EGD in the interim since last office visit. He has continued erfrbmjgxi96 mg p.o.twice daily. He reports thatepigastric pain at bedtime has resolvedbut he continues to experience some nausea particularly in the mornings lasting until around noon. Denies other voiced GI complaints today. He does share that he did haveabdominal CT in the emergency department approximately 1 month ago. These results were reviewed with him today. 08/20/2023 GI ([place]): Patient returns todaydue to concernsof new provider changes. He statesthat hewanted to touch base regarding his healthmoving forwardand have evaluation for small intestinal bacterial overgrowth. He states that he has had this in the pastand would like to repeat testing. He states foras long as he can remember he has had a left upper quadrant abdominal painfor at least a yearthat has alwaysbeen at night. He would awake take omeprazole or Gaviscon within an hour would be back to sleep. Over the last year this is increased in frequencyuntilit finally began startingto present itself during the daytime as well. He also notes postprandial nausea. He did have an EGDcompletedthat demonstrated healingerosions. He was treated byincreasing his PPI to twice daily at that time. He is also done other things like cutting out wine on a nightly basis. Howeverhe still has some ongoing abdominal pain. He states that at her previous appointment they thought that this was possibly a bile issueand he was started on colestipol. Unfortunately, this did not help his symptomsand he was advised to discontinue it afterno improvement. He does state thataround this time he underwentimaging that demonstrated diverticulitis. He is to have a repeat colonoscopy on 03 Septemberfor further evaluation. He states currently he has a Hopkins type III or IV bowel movement at least 5 days a weekgive or take. Today he denies nausea, vomiting, heartburn, dysphagia. He describes his symptoms as more of an indigestion. 09/03/2023 [place]: - Diverticulosis in the sigmoid colon, in the descending colon and in the transverse colon. - The examination was otherwise normal. - No specimens collected. - No repeat colonoscopy due to age. 09/26/2023 OV ([place]): Patient returns since last visit having been battlingsinus congestion and sore throat. He states he was initially seen at [facility] where they ruled out COVID, influenza, and strep. He ultimately followed up with Dr. Lucio. During this period of time he has been on 7 days of Bactrim, 9 days of doxycyclinefollowed by completion of Augmentin this morning. He states his bowel movements have been all over the place from near normal to watery. Denies multiple watery bowel movements per day. He realized in the last several days that he had not started the MiraLAX that was previously discussed. He tried this 2 days ago and noted that the initial day afterwards he did not have any abdominal painbut did awaken to abdominal pain this morning. He describes this pain as a crampingsometimes pinching sensation. There are times where it is at a specific pinpoint spot. He states thatif he gets physically active during these episodes of pain he will become lightheaded. Symptoms come on in waves. He had been following the GERD diet pretty well but recently reintroducedwine. Ultimately, he does not feel that his symptoms are much better. 10/10/2023 EGD: Normal esophagus.Normal stomach.Normal examined duodenum. Pathology: gastric antrum Mild chronic gastritis with admixed features of reactive gastropathy. no evidence of intestinal metaplasia, dysplasia or carcinoma. Neg H. Pylori 10/29/2023 OV ([place]): Patient returns today statingthat his pinpoint painhas reduced in severitybut states that it has become a more generalized left upper quadrant paindescribed as tightness and cramping. He states that itincreases 1 hour after eatingas well as is worse in the morningand improvesthroughout the day. He states that the addition of amitriptylineseems to have numbed the painas well as help him sleep. He states he has become tolerant to the medicine and is no longer waking up drowsyor having adverse side effects. He continues with Pepcid Completetwice daily in additionto his omeprazole. He also notes improvementGaviscon when used. He has noted no change to his symptoms since discontinuing the sucralfate after most recent EGD. Of note patientnoted his blood pressure last night after finishing a football game at 187/105and this morning after driving and on snowy roadsw[place] 170/78. He states that when he saw his tumbling barrel painter last there had been discussion of adding a thirdhypertensive medicationbut this was deferred as patient had 2 additionalfollow-up appointments where it was going to be monitored. Patient has hip replacement surgery scheduled for November 08and is concerned about his blood pressure regarding this. Patient also admits to several nights of pork, mashed potatoes, sauerkraut this week. But he does state that he follows the Dash diet otherwise. Social history: He smoked approximately 60 years ago when he was in college. Reports he has cut back from 2 to 3 glasses of wine each evening with dinner to 2 or 3 on the weekend. Denies recreational drug use including marijuana. He is with 2 adult children and several grandchildren. 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 No further complaints or concerns today. Physical Exam Vitals & Measurements HR:82(Monitored) RR:16 BP:144/84 SpO2:97% WT:83.8kg WT:83.800kg(Dosing) General:Alert and oriented, No acute distress, appears stated age HENT:Normocephalic, normal hearing Respiratory: Respiration are non-labored, pt speaking in complete sentences,and no evidence of respiratory distress is noted Integumentary:Exposed skin viewable is dry and intact Psychiatric:Cooperative, appropriate mood & affect, Normal judgement Assessment/Plan 1.IBS (irritable bowel syndrome) 2.Left sided abdominal pain 3.GERD (gastroesophageal reflux disease) 4.Gastric erosion The patient is an 83-year-old malewhopresents in the office todayfor evaluation due to left upper quadrant abdominal pain and nausea. Patient does feel that his amitriptyline has helped, we will continue this at 10 mg nightly. There was discussion somewhere with the provider that his amitriptyline may be the cause of his elevatedblood pressure; I have discussed with patient that the side effects of amitriptyline are typicallylow blood pressureand that I do notfeel that this is the cause of his increasedsystolic pressure today. I have recommended patientseek follow-up with his PCP regarding hypertension. Recheck in the office at the close of appointment was 144/84. -I have stressedfollowing the GERD diet including abstaining fromwine consumption. He is agreeable Continue omeprazole 20mg po BID but will consider change ofPPI, giventhat Gavisconalso seems to improve symptoms. -10/10/2023 EGD: Normal esophagus.Normal stomach. Normal examined duodenum -Addedsucralfateto patient's regimen for before meals. Has since discontinued and notes no change in symptoms Patient has had EGD,colonoscopy, and CT abdomen pelviswith no explanatory findings for hisleft upper quadrant abdominal pain. Patient has CT angiography todayat 3 PM. We will await these resultsand formulate additional plan. GI follow up in6-8 weeks, sooner if needed. I have spent54 minutes in evaluation, education and documentation of this pt in both face to faceand non-face to face activities. 10 Minutes spent pre-charting 37 Minutes spent face to face evaluation. 7minutes spent documenting Problem List/Past Medical History Ongoing Anemia ARF (acute renal failure) Arthritis Benign nevus Bilateral carpal tunnel syndrome Chronic rhinitis Family history of skin cancer First degree AV block Former smoker Fructose malabsorption GERD (gastroesophageal reflux disease) Hammertoe of left foot Hematuria History of stroke Hypercholesterolemia HYPERTENSION IBS (irritable bowel syndrome) Impaired fasting glucose Left foot pain Left sided abdominal pain Low back pain Neuroma of second interspace of left foot Plantar plate injury PND (post-nasal drip) Positive lactulose breath hydrogen test Sinus bradycardia SK (seborrheic keratosis) Strain of right psoas muscle Tingling of left upper extremity Tricuspid regurgitation Historical Acute pharyngitis LLQ pain Procedure/Surgical History EGD - esophagogastroduodenoscopy (10/10/2023)Colonoscopy (09/03/2023)EGD - Esophagogastroduodenoscopy (07/15/2023)CT of abdomen and pelvis (01/21/2023)Chest x-ray (12/10/2022)CT of abdomen and pelvis (08/01/2022)Colonoscopy (05/22/2022)Laser eye surgery (06/15/2020)Hydrogen breath test (05/31/2020)Shave biopsy and cauterization of skin (11/05/2018)Shave biopsy andcauterisation of skin (02/12/2018)CT of head (03/01/2017)Cataract extraction (12/2016)Upper GI (03/03/2014) Colonoscopy (02/15/2012) excision of lipoma right flank T & A vasectomyCholecystectomyEndoscopy Medications aluminum hydroxide-magnesium carbonate(Gaviscon Extra Strength 160 mg-105 mg oral tablet, chewable), 2 tab, PO, pc and hs, 1 refills aspirin(aspirin 81 mg oral delayed release tablet), 81 mg= 1 tab, PO, qhs, 10 refills chlorthalidone(chlorthalidone 25 mg oral tablet), 25 mg= 1 tab, PO, q48h, 4 refills chondroitin-glucosamine(glucosamine-chondroitin 200 mg-250 mg oral capsule), 1 cap, PO, Daily doxazosin(doxazosin 1 mg oral tablet), See Instructions lisinopril(lisinopril 20 mg oral tablet), 20 mg= 1 tab, PO, bid, 3 refills omeprazole(omeprazole 20 mg oral delayed release capsule), 20 mg= 1 cap, PO, bid rosuvastatin(rosuvastatin 5 mg oral tablet), See Instructions, 3 refills rosuvastatin(rosuvastatin 10 mg oral tablet) ubiquinol, PO, Daily Allergies Allergy Not found in Searchfructose, IBS amLODIPineedema Social History Smoking Status Former Smoker, quit > 1 yr Alcohol Use:Current Type:Wine Frequency:Daily Average drinks per episode in last year:4 Employment/School Status:Retired Description:[employer] Exercise Duration (average number of minutes):60 Times per week:Daily Exercise type:Walking, Running Home/Environment Lives with:Spouse Living situation:Home/Independent Nutrition/Health Diet description:FODMAP, low fructose diet Diet restrictions:low FODMAP diet Substance Abuse - Denies Substance Abuse Tobacco - Denies Tobacco Use Use:Former smoker Tobacco use per day:0.5 Number of years:6 Total pack years:3 Started at age:20Years Stopped at age:26Years Family History Basal cell carcinoma: Sister. Cholecystectomy: Mother. High Blood Pressure: Mother. Leukemia: Father. Liver cancer..: Mother. Lymphoma: Father. Health Status Family Member(s) Family Member(s) Relationship: Mother, Age: 75 Years, Cause: gallbladder cancer Relationship: Father, Age: 76 Years, Cause: stroke Immunizations Vaccine Date Status influenza virus vaccine, inactivated 08/16/2022 Recorded SARS-CoV-2 mRNA (sarklmrofqw-cyuz-geb) 03/21/2022 Recorded influenza virus vaccine, inactivated 07/11/2021 Recorded SARS-CoV-2 (COVID-19) mRNA-1273 vaccine 12/19/2020 Recorded SARS-CoV-2 (COVID-19) mRNA-1273 vaccine 11/21/2020 Recorded influenza virus vaccine, inactivated 07/05/2020 Recorded pneumococcal 23-valent vaccine 06/06/2020 Recorded influenza virus vaccine, inactivated 08/25/2019 Recorded influenza virus vaccine, inactivated 08/08/2018 Recorded Comments : [facility] zoster vaccine, inactivated 2018 Recorded Comments : [facility] zoster vaccine, inactivated 05/06/2018 Recorded Comments : [facility] influenza virus vaccine, inactivated 07/24/2017 Given tetanus/diphtheria/pertuss, acel (Tdap) 04/16/2017 Given influenza virus vaccine, inactivated 08/01/2016 Given influenza virus vaccine, inactivated 08/25/2015 Given pneumococcal 13-valent vaccine 01/19/2015 Given influenza virus vaccine, inactivated 07/14/2014 Given influenza virus vaccine, inactivated 07/10/2012 Given tetanus/diphtheria/pertuss, acel (Tdap) 04/02/2007 Recorded zoster vaccine live 01/15/2007 Recorded pneumococcal 23-valent vaccine 11/02/2002 Recorded Recommendations Health Maintenance Pending(in the next year) OverDue Adult Influenza Vaccine due04/19/23and every 1year Medicare Annual Wellness Visit due04/25/23and every 1year Due Adult COVID-19 Vaccination due10/29/23Unknown Frequency Adult Social Determinants of Health Screening due10/29/23Unknown Frequency Satisfied(in the past 1 year) Satisfied Body Mass Index on10/03/23.Satisfied by JOSY Genao Erin Colorectal Cancer Screening on09/08/23.Satisfied by Contributor_system, [employer] Lipid Screening on03/12/23.Satisfied by Contributor_system, [email or web address] Electronic Signature on File CC: Ricardo Steve MD [address] [place] [address] Electronically Reviewed/Signed by: Maureen Unger PA-C Author Signature Dt/Tm:10/29/2023 10:25 AM Division of Gastroenterology Electronically Reviewed/Signed by: Levi Hall MD Cosigner Signature Dt/Tm: 10/29/2023 11:29 AM Division of Gastroenterology [facility] Patient Care team information Care Team Personnel Name: MD Buckley Jonathan D Position: Physician - Family Med Member Role: Lifetime Relationship Address: Address: [address] [place] [address] [place] Name: DO Aguilar Franklin J Position: Physician - Family Med Member Role: Lifetime Relationship Address: Address: [address] [place] [address] [place] Name: MD Too, Alison Aleman Position: Physician - Gastro Member Role: Lifetime Relationship Address: Address: [address] [place] [address] [place] Name: MD Power, Ricardo Cameron Position: Physician - Internal Med Member Role: Primary Care Provider Address: Address: [address] [place] [address] [place] Name: MD Kayden, Case Mcdonald Position: Physician - Internal Med Member Role: Lifetime Relationship Address: Address: [address] [place] [address] [place] [address] Care Team Related Persons Name: MAG SINGH Address: home [address] [facility], [place] [id number]
[2023-11-08] MEDS ORDERED: ePHEDrine sulfate 50 MG/5 ML SYR ONE (08:34)
[2023-11-08] MEDS ORDERED: PHENYLEPHRINE 100MCG/ML 10ML SYR IV ONE (08:36)
--- NOTE | 2023-11-08 09:15 | Operative Report ---
PG Post Operative Report Pre & Post Diagnosis Operation Date: 11/08/23 07:55 Pre-Op Diagnosis: Degenerative Joint Disease Right Hip Post-Op Diagnosis: Degenerative Joint Disease Right Hip I identified the patient and participated in the time-out.: Yes Procedure Operation Date: 11/08/23 07:55 Actual Procedures p Right Anterior Total Hip Arthroplasty(Right) - Levi Crawley DO Surgeon Levi Crawley DO Criminal Justice Department Chair Magan Atkins PA-C Estimated Blood Loss 200 Findings Consistent with Post-Op Diagnosis Specimens Right femoral head Description of Procedure Implants used I used a ZimmerBiomet total hip arthroplasty system with a size 3 standard offset Avenir Complete stem, a 54 mm G7 cup with a 25mm screw, an E1 polyeth ylene liner, a 40 mm ceramic head with a 0 neck. Andrzej arrived at the hospital for the above procedure. He was seen in the preoperative holding area and the operative extremity was identified and signed. He was given a spinal anesthetic, a preoperative antibiotic, and TXA. He was then taken back to the operating room and laid on the table in the supine position. He was given basic sedation. The operative leg was secured to a Puristst leg positioner. The hip was then prepped and draped in sterile fashion. A timeout was done and the patient and the operative extremity was properly identified. An anterior approach was used. Dissection was taken down through the fascia and the tensor muscle belly was retracted laterally and the rectus was retracted medially. The circumflex vessels were identified and ligated. The capsule was then incised and tagged for later repair. The femoral neck was then cut and the femoral head was removed. The acetabulum was exposed. Time was spent doing a complete circumferential labral release. Sequential reaming of the acetabulum up to a size 53 reamer was done. Final reamings were done under fluoroscopy to ensure appropriate version. A Biomet 54 mm G7 cup was then impacted into place. A single 25 mm screw was placed. The E1 polyethylene liner was then snapped into place. Surrounding soft tissues were then injected with 100 cc of an ort hopedic pain control cocktail. The proximal femur was then exposed. Sequential broaching up to a size 3 broach was done. Off that broach a size 40 head with a 0 neck was trialed. The hip was reduced and fluoroscopic images showed anatomic alignment of the implants in acceptable length. The broach was removed. The final size 3 standard offset Avenir Complete stem was then impacted into place. A ceramic 40 mm head with a 0 neck was then impacted onto the stem and the hip was reduced. Final fluoroscopic images showed anatomic alignment of the hip. The capsule was then closed with #1 Vicryl suture. A dilute betadyne lavage was then done for 3 minutes. The joint was then irrigated with normal saline solution. The fascia was closed with #1 PDS suture. Skin was closed with 2-0 Vicryl, lonny, and a Silverlon dressing. He was then transferred to a hospital bed and taken to the post anesthesia care unit in stable condition. He tolerated the procedure well. Magan Atkins PA-C, was present for the entire procedure. He was critical for patient positioning, prepping, draping, retraction exposure, wound closure and application of sterile dressing. I attest to the content of the Intraoperative Record and any orders documented therein. Any exceptions are noted below.
--- NOTE | 2023-11-08 09:40 | Fluoroscopy Report ---
INTRAOPERATIVE RADIOGRAPH CLINICAL HISTORY: Right hip arthroplasty. Fluoro time: 19 seconds Ka,r: 2.32 mGy FINDINGS: A single spot fluoroscopic view of the right hip is correlated with radiographs dated 2022. A bipolar right hip arthroplasty is in near anatomic alignment. A single cortical lag screw tra nsfixes the acetabular cup. There is no evidence of fracture on this fluoroscopic image. IMPRESSION: Intraoperative image from a right hip arthroplasty procedure as above. Electronically signed by: Herve Clark M.D. 11/08/2023 9:38 AM
--- NOTE | 2023-11-08 10:57 | XRay Report ---
SINGLE VIEW PELVIS; SINGLE VIEW RIGHT HIP CLINICAL HISTORY: Postoperative examination. FINDINGS: An AP portable view of the hips and pelvis with a crosstable lateral portable view of the r ight hip are compared to study dated 07/09/2023. A bipolar right hip arthroplasty is in near-anatomic alignment. A single cortical lag screw transfixes the acetabular cup. No acute fracture is identified . There are expected postoperative changes overlying the right hip including skin clips, subcutaneous gas, and soft tissue swelling. Mild arthritic change and joint space narrowing is noted in the left hip. Phleboliths are seen in the pelvis. IMPRESSION: Expected postoperative findings status post right hip arthroplasty. No acute fracture is seen. ACT 112: Negative or not required by law. Electronically signed by: Herve Clark M.D. 11/08/2023 10:56 AM
[2023-11-08] MEDS ORDERED: bisacodyL 10 MG SUPP PR PRN (11:36)
[2023-11-08] MEDS ORDERED: traMADol HCL 50 MG TABLET PO PRN (11:36)
[2023-11-08] MEDS ORDERED: METOCLOPRAMIDE HCL INJ 5 MG/ML 2 ML VIAL IV PRN (11:36)
[2023-11-08] MEDS ORDERED: MAGNESIUM HYDROXIDE SUSP 30 ML UDC PO PRN (11:36)
[2023-11-08] MEDS ORDERED: HYDROmorphone INJ 0.5 MG/0.5 ML SYR IV PRN (11:36)
[2023-11-08] MEDS ORDERED: NALOXONE HCL 0.4 MG/1 ML VIAL/CARP IV PRN (11:36)
[2023-11-08] MEDS ORDERED: oxyCODONE HCL IR 5 MG TAB (IMMEDIATE RELEASE) PO PRN (11:36)
[2023-11-08] MEDS ORDERED: SUCRALFATE 1 GM TAB PO SCH (11:36)
[2023-11-08] MEDS ORDERED: NON-FORMULARY MEDICATION (Coenzyme Q10 [Co Q-10] 10 mg Capsule) PO SCH (11:36)
[2023-11-08] MEDS: SODIUM CHLORIDE 0.9% 1,000 ML IV SCH ×2 (12:18→19:29)
[2023-11-08] MEDS ORDERED: CHLORTHALIDONE 25 MG TAB PO SCH (12:30)
[2023-11-08] MEDS: KETOROLAC TROMETHAMINE 15 MG/ML VIAL IV SCH ×2 (12:58→18:15)
--- NOTE | 2023-11-08 13:25 | Anesthesiology Progress Note ---
Date of Service November 08, 2023 Anesthesia Post Procedure Vital Signs Vital Signs: Temp Pulse Pulse Resp BP Pulse Ox O2 Del Method 11/08/23 12:42 36.3 C L 83 18 152/78 H 95 Room Air 11/08/23 12:03 36.8 C 72 18 152/81 H 97 Room Air 11/08/23 11:36 36.4 C L 76 16 135/78 95 Room Air 11/08/23 11:15 77 17 126/81 96 Nasal Cannula 11/08/23 11:05 75 16 129/75 96 Nasal Cannula 11/08/23 10:55 81 16 120/66 96 Nasal Cannula 11/08/23 10:45 73 16 129/66 95 Nasal Cannula 11/08/23 10:35 69 15 128/70 95 Nasal Cannula 11/08/23 10:25 36.4 C L 63 15 122/67 96 Nasal Cannula 11/08/23 10:15 61 18 122/75 99 Nasal Cannula 11/08/23 10:05 71 20 120/63 97 Room Air 11/08/23 09:55 64 15 137/70 100 Oxymask 11/08/23 09:45 60 17 116/65 100 Oxymask 11/08/23 09:38 36.1 C L 69 17 118/63 97 Oxymask 11/08/23 06:56 36.8 C 72 20 163/101 H 98 Room Air O2 Flow Rate 11/08/23 12:42 11/08/23 12:03 11/08/23 11:36 11/08/23 11:15 2 11/08/23 11:05 2 11/08/23 10:55 2 11/08/23 10:45 2 11/08/23 10:35 2 11/08/23 10:25 2 11/08/23 10:15 2 11/08/23 10:05 11/08/23 09:55 5 11/08/23 09:45 5 11/08/23 09:38 5 11/08/23 06:56 Pain Intensity Right Hip: Pain Intensity: 0 Transfer of Care Handoff Completed per policy Notes Mental Status: alert / awake / arousable and participated in evaluation Patient Amnestic to Procedure: Yes Nausea / Vomiting: adequately controlled Pain: adequately controlled Airway Patency, RR, SpO2: stable & adequate BP & HR: stable & adequate Hydration State: stable & adequate Neuraxial Anesthesia: was administered and sensory block is resolving Anesthetic Complications: no major complications apparent and Pt Satisfied with anesthetic care
[2023-11-08] MEDS: ACETAMINOPHEN 500 MG TAB PO SCH ×2 (13:31→21:37)
[2023-11-08] MEDS: ceFAZolin 2000MG 2,000 MG/15 ML SYR IV SCH (16:46)
[2023-11-08] MEDS: DOCUSATE SODIUM 100 MG CAP PO SCH (19:23)
[2023-11-08] MEDS: ASPIRIN 81 MG ECTAB PO SCH (19:24)
[2023-11-08] MEDS: PANTOprazole 40 MG TAB PO SCH (19:24)
[2023-11-08] MEDS ORDERED: AMITRIPTYLINE HCL 10 MG TAB PO SCH (21:00)
[2023-11-08] MEDS ORDERED: lisinopril 40 MG TAB PO SCH (21:00)
[2023-11-08] MEDS ORDERED: DOXAZosin MESYLATE TAB 2 MG TAB PO SCH (21:00)
[2023-11-08] MEDS ORDERED: SENNA 8.6 MG TAB PO SCH (21:00)
[2023-11-09] MEDS: ceFAZolin 2000MG 2,000 MG/15 ML SYR IV SCH (00:07)
[2023-11-09] MEDS: KETOROLAC TROMETHAMINE 15 MG/ML VIAL IV SCH ×2 (00:07→05:43)
[2023-11-09] MEDS: ACETAMINOPHEN 500 MG TAB PO SCH (05:43)
--- NOTE | 2023-11-09 07:44 | Orthopedic Progress Note ---
Date of Service November 09, 2023 Assessment & Plan (1) Status post right hip replacement: Overall he is doing very well. He is not having much pain in the right hip. He will be seen by physical therapy today for ambulation and range of motion exercises. He is on aspirin for DVT prophylaxis. He can be discharged home later today. He will follow-up with orthopedics in 2 weeks. Darlyn Donnelly was seen and examined at bedside this morning. Overall is doing very well. He is not having much pain in the right hip. Has been up and ambulating to the bathroom. He has no complaints.. Review of Systems All systems reviewed & are unremarkable except as noted in HPI & below. Physical Exam On physical examination of the right hip, the dressing is clean and dry. His legs out full extension. He has active dorsiflexion plantarflexion of the right ankle.. Results & Data Results & Data Laboratory Results . Diagnostic Findings Postoperative x-rays of the right hip show the prosthesis to be in anatomic alignment without any evidence of fracture, dislocation, or loosening.. PG Care Time/CCT Total # of Minutes Spent Total Time Spent with Patient: Total time spent is greater than 50% in coordination of care (as documented) at patient's floor/unit and/or counseling patient: Coding Level of Care Code 65843 Post Operative Follow-Up Diagnoses Status post right hip replacement Z96.641
--- NOTE | 2023-11-09 07:45 | Discharge Summary ---
Date of Service November 09, 2023 Admission HPI (Per Admitting) Andrzej is a pleasant 83-year-old male who has been dealing with chronic increasing right hip pain. He has been following up with my partner, Dr. Harris. He has tried an injection to his hip that gave him complete relief, but then wore off. He is now using a crutch because of this hip pain. He has x-rays, which showed advanced osteoarthritis. After failing conservative treatment, he has elected to proceed with a right anterior total of arth roplasty. Admission Exam (Per Admitting) On physical examination the right hip, he has decreased range of motion. He has pain with forced internal/external rotation.. Principal Diagnosis Same as "Discharge Diagnosis" noted below under Discharge Instructions. Discharge Exam On physical examination of the right hip, the dressing is clean and dry. His legs out full extension. He has active dorsiflexion plantarflexion of the right ankle.. Discharge Data Procedures Performed Operation Date: 11/08/23 07:55 Actual Procedures p Right Anterior Total Hip Arthroplasty(Right) - Levi Crawley DO Ordered Studies 11/08/23 07:55 FL hip RT 1V Routine Hospital Course (1) Status post right hip replacement: On November 08, 2023 Andrzej arrived at [facility] and underwent a right hip replacement without complication. He had a spinal anesthetic. Postoperatively he was started on aspirin for DVT prophylaxis and transferred to the general orthopedic floors. His hospital course was uneventful. On postop day #1, his vital signs were stable and his pain was well-controlled. He was able to participate well with physical therapy doing ambulation and range of motion exercises. He was then discharged home. He will follow-up with orthopedics in 2 weeks. PG Care Time/CCT Total # of Minutes Spent Total Time Spent with Patient: Total time spent is greater than 50% in coordination of care (as documented) at patient's floor/unit and/or counseling patient: Discharge Plan Discharge Items Patient Disposition: Home - Self-Care Reason For Visit: Degenerative Joint Disease Right Hip Discharge Diagnosis: Right hip replacement Activity: As commented below Non-emergency contact: Surgeon Call non-emergency contact if: your wound has increased redness and your wound has increased drainage Follow-up/Referrals: Ricardo Steve MD [Primary Care Provider] - Diet: Regular Addtl Attending Provider Instructions: Activity and Therapy Recommendations: * If you are using [facility] then therapy will be provided at your home until they feel you have accomplished all of your goals. * If you are using [facility] then Physical Therapy will be provided until they feel you are ready to start Outpatient Physical Therapy. * If you are not using home therapy then Outpatient Physical Therapy should start about 3-5 days from your day of surgery. Therapy will last about 6-10 weeks * You were shown a series of exercises in the hospital. Do these exercises three times each day including the exercises you were shown in physical therapy. * Get up and walk several times each day.~ For the first four weeks, try not to stand or walk for more than one hour at a time. If you do stand or walk for more than one hour, you will not hurt anything, but your leg will likely swell.~~ * As you feel comfortable, you may change from the walker or crutches to a cane and~then to independent walking. Medications: * Narcotic You will likely be sent home from the hospital with a prescription for the narcotic pain medication that worked best throughout your stay. * Cefadroxil -take the antibiotic twice a day for 10 days to help prevent infection. * Aspirin Most patients will be required to take Aspirin 81mg twice a day for 6 weeks after surgery. This is obtained [id number] and a prescription is not necessary. * Other medications may be prescribed for specific circumstances. If you have any questions, please call the office at . * Resume previous home medications unless otherwise instructed TEDs/Elastic Stockings: The white elastic stockings help limit swelling and prevent blood clots from forming in your legs. The more you wear them, the more they work. Wear them for six weeks. Dressing Care: Leave the Silverlon dressing in place for 7 days. After 7 days you may remove the dressing. If the incision is not draining then you may leave the lonny open to air. If there is a little bit of drainage or if the lonny are getting stuck on your clothing then cover the incision with a dry dressing. The lonny will be removed at your 2 week follow-up appointment. Showering: You may shower with the Silverlon dressing in place. Do not let the shower spray hit the dressing directly. Pat the Silverlon dressing dry. If the dressing becomes wet underneath, then simply remove the dressing. Keep the incision dry until you are 7 days out from the day of surgery. After 7 days you may remove the Silverlon dressing and shower with the lonny exposed. Let soapy water run over the lonny and pat them dry. Do not scrub or soak the incision. Things To Watch For: * Drainage from the incision site that occurs more than one week after your surg alfred. * Increased redness at the incision site. * Fever above 102 degrees Fahrenheit. * Unusual chest pain or shortness of breath. * Call [facility] at with any of the above problems Follow-Up Visit: Follow-up with Dr. Crawley's PA (Levi Crocker) 2-3 weeks after your day of surgery. He will remove your lonny and answer any questions. If you have any additional questions or concerns, Dr Crawley is usually in the office at the same time and will be available An appointment was probably scheduled when you signed-up for surgery in the [facility]. If you have any questions call Office Instructions: More detailed instructions as well as Frequently Asked Questions were provided in a folder by our office when you signed-up for surgery. Please review these instructions when you get home. If you have any further questions or concerns, please feel free to call the office at [phone] Pending Studies at Discharge: No Stand-Alone Forms: [facility], Pain - Opioid Pain Management, Smoking Cessation Medications and DC Order Prescriptions: New oxycodone 5 mg Tablet 5 mg PO Q4H PRN (Reason: pain) Qty: 30 0RF cefadroxil 500 mg capsule 500 mg PO BID 10 Days Qty: 20 0RF Continued meloxicam 7.5 mg tablet 7.5 mg PO BID PRN (Reason: pain) Qty: 30 1RF Patient Comments: has not yet started 09/24/23 polyethylene glycol 3350 [Miralax] 17 gram/dose powder 17 g PO DAILY doxazosin 1 mg tablet 2 mg PO HS chlorthalidone 25 mg tablet 25 mg PO Q OTHER DAY methylprednisolone [Medrol (S[place]man)] 4 mg tablets,dose pack 4 mg PO UD Qty: 21 0RF Patient Comments: finished with this 09/24/23 Rx Instructions: 6 pills q4 hours x 1 day then 5 pills q5 hours x 1 day then 4 pills q6 hours x 1 day then 3 pills q8 hours x 1 day then 2 pills q12 hours x 1 day then 1 pill x 1 day tramadol 50 mg tablet 50 mg PO Q8H PRN (Reason: pain) Qty: 30 0RF Patient Comments: never started coenzyme Q10 [Co Q-10] 10 mg Capsule 10 mg PO QDL Glucos Chond Cplx Advanced 750 mg-100 mg- 125 mg-1.65 mg Tablet 1 tab PO BID lisinopril 20 mg tablet 40 mg PO HS rosuvastatin 5 mg tablet 15 mg PO .qod Rx Instructions: TAKE ONE 5 MG TABLET ALONG WITH ONE 10 MG TABLET EVERY OTHER DAY TO EQUAL 15 MG DOSE omeprazole 20 mg Tablet,Delayed Release (Dr/Ec) 20 mg PO BID sucralfate 1 gram Tablet 1 g PO AC amitriptyline 10 mg Tablet 5 mg PO HS Rx Instructions: Patient currently taking 5 mg for 14 days and then increasing to 10 mg. fluticasone propionate 50 mcg/actuation [place],Suspension 1 spray INTRANASAL BID Rx Instructions: administer into each nostril ibuprofen 200 mg Tablet 200 mg PO Q6H PRN (Reason: Pain) Changed aspirin 81 mg tablet,delayed release (DR/EC) 81 mg PO BID 42 Days Qty: 0 0RF Discharge Orders: Discharge Order (Routine); Ordered 11/09/23 Ordered By: Levi Dave/Other Patient Handouts: After Hip Replacement: Home Safety Admission Data Admit Date/Time: 11/08/23 09:49 Attending Provider: Levi Crawley Admit Provider: Levi Crawley Primary Care Provider: Ricardo Steve Other Interventions: Discharge Summary Assessment (RN) Last Done: 11/09/23 07:36
[2023-11-09] MEDS ORDERED: dexAMETHasone 4 MG TAB PO SCH (08:00)
[2023-11-09] MEDS: ASPIRIN 81 MG ECTAB PO SCH (08:31)
[2023-11-09] MEDS: PANTOprazole 40 MG TAB PO SCH (08:31)
[2023-11-09] MEDS: DOCUSATE SODIUM 100 MG CAP PO SCH (08:32)
[2023-11-09] MEDS ORDERED: ROSUVASTATIN CALCIUM 5 MG TAB PO SCH (09:00)
[2023-11-09] MEDS ORDERED: MULTIVITAMIN TAB PO SCH (09:00)
== END 2023-11-09 11:05 | disposition home or self-care (01) ==
LOC: 3E 06:21 → ASU 06:21